=== PATIENT | male | born 1930 | race Caucasian/White ===

== ENCOUNTER 2017-03-29 11:10 | Emergency (ER) | payer MEDICARE, OTHER ==
--- NOTE | 2017-03-29 11:32 | EDM.PDOC ---
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 presents to the emergency department today with above complaint of urinary retention states been going on for last 12 hours, last time he had this difficulty with several years ago denies any fevers nausea vomiting shortness breath or chest pain Bladder Pain Score (Numeric/FACES): 7 - Related Data Allergies Allergy/AdvReac Type Severity Reaction Status Date / Time gabapentin AdvReac Stomach Verified 03/29/17 11:38 Upset Home Meds: Home Meds Chlorthalidone 25 mg PO DAILY 01/29/15 [History] Finasteride [Proscar] 5 mg PO DAILY 01/29/15 [History] Lisinopril [Zestril] 10 mg PO DAILY 01/29/15 [History] Omeprazole [Prilosec] 20 mg PO BID 01/29/15 [History] Simvastatin [Zocor] 40 mg PO BEDTIME 01/29/15 [History] PARoxetine HCl [Paroxetine HCl] 10 mg PO DAILY 11/06/15 [History] Aspirin [Adult Low Dose Aspirin EC] 81 mg PO DAILY 08/29/16 [History] Metoprolol Tartrate 12.5 mg PO BID 08/29/16 [History] Terazosin [Hytrin] 2 mg PO BEDTIME 08/29/16 [History] tiZANidine HCl [Zanaflex] 4 mg PO Q8HR PRN 08/29/16 [History] Polyethylene Glycol 3350 [Miralax] 17 gm PO DAILY 08/31/16 [History] Furosemide [Lasix] 20 mg PO DAILY #30 tab 09/28/16 [Rx] Potassium Chloride 20 meq PO BID #60 tablet.er 09/28/16 [Rx] Past Medical History HEENT History: Reports: Hard of Hearing, Impaired Vision Cardiovascular History: Reports: Cardiomyopathy, Heart Murmur, High Cholesterol , Hypertension Respiratory History: Reports: SOB Gastrointestinal History: Reports: Chronic Constipation, GERD, Irritable Bowel Syndrome Genitourinary History: Reports: BPH, Chronic Renal Insuffiency Other Genitourinary History: stage 3 Musculoskeletal History: Reports: Back Pain, Chronic, Fracture, Other (See Below ) Other Musculoskeletal History: 3 vertabrae's crushed together. 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 rib fx Neurological History: Reports: Other (See Below) Other Neuro History: neuopathy(HCC) Psychiatric History: Reports: Depression, Other (See Below) Other Psychiatric History: sleep distrbance Endocrine/Metabolic History: Reports: Other (See Below) Other Endocrine/Metabolic History: subclinical [id number] - Infectious Disease History Infectious Disease History: Reports: Chicken Pox, Measles, Mumps - Past Surgical History GI Surgical History: Reports: Cholecystectomy, Colonoscopy, Hernia Repair/Other , Polypectomy Musculoskeletal Surgical History: Reports: Arthroscopic Knee Social & Family History - Family History Cardiac: Reports: Other (See Below) Other Cardiac Family History: father of heart attack Endocrine/Metabolic: Reports: Diabetes, type II Hematologic: Reports: None Oncologic: Reports: Other (See Below) Other Oncologic Family History: sister had cancer unsure of what kind - Tobacco Use Smoking Status *Q: Never Smoker Second Hand Smoke Exposure: No - Caffeine Use Caffeine Use: Reports: None Caffeine Use Comment: one half cup tid - Alcohol Use Days Per Week of Alcohol Use: 2 Number of Drinks Per Day: 2 Total Drinks Per Week: 4 - Recreational Drug Use Recreational Drug Use: No ED ROS GENERAL - Review of Systems Review Of Systems: See Below Constitutional: Denies: Fever, Chills HEENT: Reports: No Symptoms Respiratory: Reports: No Symptoms Cardiovascular: Reports: No Symptoms GI/Abdominal: Reports: No Symptoms : Reports: Urinary Retention Musculoskeletal: Reports: No Symptoms Skin: Reports: No Symptoms ED EXAM, RENAL/ - Physical Exam Exam: See Below Exam Limited By: No Limitations General Appearance: Alert, WD/WN, No Apparent Distress GI/Abdominal: Soft, Tender (Suprapubic tenderness) Course - Vital Signs Last Recorded V/S: Last Vital Signs Temp 96.2 F 03/29/17 11:37 Pulse 66 03/29/17 11:37 Resp 20 03/29/17 11:37 BP 193/105 H 03/29/17 11:37 Pulse Ox 97 03/29/17 11:37 - Orders/Labs/Meds Orders: Active Orders 24 hr Category Date Time Status Kimball Catheter Insertion [Insert Urinary Catheter] [OM. Care 03/29/17 11:30 Ordered PC] Q24H Urinary Catheter Assessment [RC] ASDIRECTED Care 03/29/17 11:27 Active Departure - Departure Time of Disposition: 12:08 Disposition: Home, Self-Care 01 Condition: Good Clinical Impression: Urinary retention - Discharge Information Referrals: Wendy Montenegro NP [Primary Care Provider] - Forms: ED Department Discharge Additional Instructions: Keep the leg bag in place until reevaluated by your primary care provider in the next 2-3 days call or return to the emergency department worsening of symptoms - My Orders Last 24 Hours: My Active Orders 03/29/17 11:27 Urinary Catheter Assessment [RC] ASDIRECTED 03/29/17 11:30 Kimball Catheter Insertion [Insert Urinary Catheter] [OM.PC] Q24H - Assessment/Plan Last 24 Hours: My Active Orders 03/29/17 11:27 Urinary Catheter Assessment [RC] ASDIRECTED 03/29/17 11:30 Kimball Catheter Insertion [Insert Urinary Catheter] [OM.PC] Q24H Plan: Assessment Acuity = acute Site and laterality = urinary retention complicated patient with known history of cardiomyopathy and benign prostatic hyperplasia Etiology = probably secondary to BPH Manifestations = abdominal pain now resolved Location of injury = home Lab values = none Plan Leg bag was placed had follow-up with primary care in the next couple days for reevaluation Patient was in agreement with the plan all questions were answered, they were instructed to return to the emergency department or call for worsening symptoms. This note was dictated using [employer] voice recognition software please call with any questions.
[2017-03-29 12:17] VITALS: BP 112/58
== END 2017-03-29 12:40 | disposition home or self-care (01) ==
LOC: JP.ED 11:10
DX: I12.9 Hypertensive chronic kidney disease with stage 1 through stage 4 chronic kidney disease, or unspecified chronic kidney disease (principal); N18.3 Chronic kidney disease, stage 3 (moderate); R33.9 Retention of urine, unspecified; E78.00 Pure hypercholesterolemia, unspecified; Z79.82 Long term (current) use of aspirin; Z79.899 Other long term (current) drug therapy; Z88.8 Allergy status to other drugs, medicaments and biological substances
CPT/HCPCS: 51702; 99282; 99283-25

== ENCOUNTER 2017-05-04 06:21 | Observation (INO) | payer MEDICARE, OTHER ==
[2017-05-04] MEDS ORDERED: Dextrose 5%-Lactated Ringers 1,000 ML IV SCH (07:00)
[2017-05-04] MEDS ORDERED: Bupivacaine 0.5%/EPINEPHrine 1:200,000 50 ML MDV ONE (07:01)
[2017-05-04] MEDS ORDERED: Lidocaine 1% 50 ML MDV ONE (07:01)
[2017-05-04] MEDS ORDERED: ceFAZolin 2 GM in Premix Bag 1 BAG IV ONE (07:30)
[2017-05-04] MEDS ORDERED: fentaNYL 100 MCG/2 ML SDV ONE (07:32)
[2017-05-04] MEDS ORDERED: Propofol 200 MG/20 ML SDV ONE ×2 (07:32→07:58)
[2017-05-04] MEDS: ceFAZolin 2 GM in Sodium Chloride 0.9% 50 ML IV ONE ×2 (07:48→19:43)
--- NOTE | 2017-05-04 10:54 | PCM.CONS ---
H&P History of Present Illness - General Date of Service: 05/04/17 Source of Information: Patient, Family, Provider History Limitations: Reports: No Limitations - Related Data Allergies/Adverse Reactions: Allergies Allergy/AdvReac Type Severity Reaction Status Date / Time gabapentin AdvReac Stomach Verified 03/29/17 11:38 Upset Home Medications: Home Meds Finasteride [Proscar] 5 mg PO DAILY 01/29/15 [History] Lisinopril [Zestril] 5 mg PO DAILY 01/29/15 [History] Omeprazole [Prilosec] 20 mg PO BID 01/29/15 [History] Simvastatin [Zocor] 40 mg PO BEDTIME 01/29/15 [History] PARoxetine HCl [Paroxetine HCl] 10 mg PO DAILY 11/06/15 [History] Aspirin [Adult Low Dose Aspirin EC] 81 mg PO DAILY 08/29/16 [History] Metoprolol Tartrate 12.5 mg PO BID 08/29/16 [History] Terazosin [Hytrin] 5 mg PO BEDTIME 08/29/16 [History] Polyethylene Glycol 3350 [Miralax] 17 gm PO DAILY 08/31/16 [History] Acetaminophen [Tylenol Arthritis] 2 tab PO Q8HR PRN 05/02/17 [History] Albuterol [Ventolin HFA] 1 - 2 puff IH Q4HR PRN 05/02/17 [History] Ferrous Sulfate 325 mg PO DAILY 05/02/17 [History] Furosemide [Lasix] 40 mg PO DAILY 05/02/17 [History] Past Medical History HEENT History: Reports: Hard of Hearing, Impaired Vision Other HEENT History: wears glasses Cardiovascular History: Reports: Cardiomyopathy, Heart Murmur, High Cholesterol , Hypertension Respiratory History: Reports: SOB Gastrointestinal History: Reports: Chronic Constipation, Colon Polyp, GERD, Irritable Bowel Syndrome Genitourinary History: Reports: BPH, Chronic Renal Insuffiency Other Genitourinary History: stage 3 Musculoskeletal History: Reports: Back Pain, Chronic, Fracture, Other (See Below ) Other Musculoskeletal History: 3 vertabrae's crushed together. 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 rib fx Neurological History: Reports: Neuropathy, Peripheral, Other (See Below) Other Neuro History: neuopathy(HCC) Psychiatric History: Reports: Depression, Other (See Below) Other Psychiatric History: sleep distrbance Endocrine/Metabolic History: Reports: Other (See Below) Other Endocrine/Metabolic History: subclinical [id number]/2012 - Infectious Disease History Infectious Disease History: Reports: Chicken Pox, Mumps - Past Surgical History HEENT Surgical History: Reports: None Cardiovascular Surgical History: Reports: None Respiratory Surgical History: Reports: None GI Surgical History: Reports: Cholecystectomy, Colonoscopy, Hernia Repair/Other , Polypectomy Male Surgical History: Reports: None Endocrine Surgical History: Reports: None Neurological Surgical History: Reports: Lumbar Spine Musculoskeletal Surgical History: Reports: Arthroscopic Knee, Carpal Tunnel, Other (See Below) Other Musculoskeletal Surgeries/Procedures:: hip surgery Dermatological Surgical History: Reports: None Social & Family History - Family History Cardiac: Reports: [place], Other (See Below) Other Cardiac Family History: father of heart attack Endocrine/Metabolic: Reports: Diabetes, type II Hematologic: Reports: None Oncologic: Reports: Other (See Below) Other Oncologic Family History: sister had cancer unsure of what kind - Tobacco Use Smoking Status *Q: Never Smoker Second Hand Smoke Exposure: No - Caffeine Use Caffeine Use: Reports: Coffee Caffeine Use Comment: one half cup tid - Alcohol Use Days Per Week of Alcohol Use: 2 Number of Drinks Per Day: 1 Total Drinks Per Week: 2 - Recreational Drug Use Recreational Drug Use: No H&P Review of Systems - Review of Systems: Review Of Systems: See Below Free Text/Narrative: A complete 12 point review of systems was obtained. Pertinent positives and negatives are noted in the history of present illness. All other systems were reviewed and were negative except as noted. Exam - Exam Exam: See Below - Vital Signs Vital Signs: Last Vital Signs Temp 36.0 C 05/04/17 08:55 Pulse 46 L 05/04/17 09:25 Resp 16 05/04/17 09:25 BP 131/68 05/04/17 09:25 Pulse Ox 96 05/04/17 09:25 Weight: 77.836 kg - Exam Quality Assessment: No: Supplemental Oxygen General: Alert, Oriented, Cooperative. No: Mild Distress HEENT: Conjunctiva Clear, Mucosa Moist & [place]. No: Scleral Icterus Neck: Supple, Trachea Midline Lungs: Normal Respiratory Effort, Rales (dry crackles at both bases). No: Wheezing Cardiovascular: Regular Rhythm, Bradycardia, Systolic Murmur GI/Abdominal Exam: Normal Bowel Sounds, Soft, No Distention Back Exam: Normal Inspection, Full Range of Motion Extremities: Normal Inspection, No Pedal Edema. No: Increased Warmth Peripheral Pulses: 1+: Dorsalis Pedis (L), Dorsalis Pedis (R) Skin: Warm, Dry Neuro Extensive - Mental Status: Alert, Oriented x3, Nl Response to Commands Neuro Extensive - Motor, Sensory, Reflexes: CN II-XII Intact. No: Dysarthria, Abnormal Motor, Tremor - Patient Data Imaging Impressions Last 24 hrs: EKG - images personally reviewed - HR upper 50's, likely afib with no obvious p waves seen. Anterior Q waves. Normal axis Consult PN Assessment/Plan POD#: 0 Procedures: Procedures AIRWAY INHALATION TREATMENT (09/27/16) ASSAY OF NATRIURETIC PEPTIDE (09/27/16) ASSAY OF TROPONIN QUANT (08/29/16) CARDIOVASCULAR STRESS TEST (09/04/16) CHEST X-RAY 1 VIEW FRONTAL (08/29/16) CHEST X-RAY 2VW FRONTAL&LATL (09/27/16) COMPLETE CBC W/AUTO DIFF WBC (09/27/16) COMPREHEN METABOLIC PANEL (09/27/16) CREATINE MB FRACTION (08/22/16) CT ANGIOGRAPHY CHEST (09/27/16) CT MAXILLOFACIAL W/O DYE (08/05/14) ELECTROCARDIOGRAM REPORT (09/04/16) ELECTROCARDIOGRAM TRACING (09/27/16) EMERGENCY DEPT VISIT (03/29/17) EMERGENCY DEPT VISIT (09/27/16) EMERGENCY DEPT VISIT (08/29/16) EMERGENCY DEPT VISIT (11/06/15) EXTREMITY STUDY (12/16/15) HT MUSCLE IMAGE SPECT MULT (09/04/16) HYDRATE IV INFUSION ADD-ON (09/27/16) INSERT TEMP BLADDER CATH (03/29/17) METABOLIC PANEL TOTAL CA (09/27/16) MRI CHEST SPINE W/O DYE (11/10/16) MRI JNT OF LWR EXTRE W/O DYE (11/09/15) MRI LUMBAR SPINE W/O DYE (01/28/16) PRP I/GARDENIA INIT REDUC >5 YR (02/01/15) ROUTINE VENIPUNCTURE (09/27/16) THER/PROPH/DIAG INJ IV PUSH (09/27/16) THER/PROPH/DIAG INJ SC/IM (09/27/16) THROMBOPLASTIN TIME PARTIAL (02/11/16) TTE W/DOPPLER COMPLETE (09/04/16) TX/PRO/DX INJ SAME DRUG MANAGER CARD (09/27/16) UPR/L XTREMITY ART 2 LEVELS (12/28/15) URINALYSIS AUTO W/SCOPE (08/29/16) US EXAM ABDO BACK WALL COMP (11/07/16) X-RAY EXAM OF ABDOMEN (08/29/16) (1) Atrial fibrillation SNOMED Code(s): 21934898 Code(s): I48.91 - UNSPECIFIED ATRIAL FIBRILLATION Current Visit: Yes Qualifiers: Atrial fibrillation type: paroxysmal Qualified Code(s): I48.0 - Paroxysmal atrial fibrillation (2) 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
[2017-05-04] MEDS ORDERED: Acetaminophen/HYDROcodone 325-5 MG Tab PO PRN (10:57)
[2017-05-04] MEDS ORDERED: Acetaminophen 325 MG Tab PO PRN (14:49)
[2017-05-04] MEDS ORDERED: Ondansetron 4 MG Tab.DIS PO PRN (14:49)
[2017-05-04] MEDS ORDERED: Sodium Chloride 0.9% 10 ML Syringe FLUSH PRN (14:49)
--- NOTE | 2017-05-04 14:55 | PCM.HP ---
H&P History of Present Illness - General Date of Service: 05/04/17 Admit Problem/Dx: Admission Diagnosis/Problem Admission Diagnosis/Problem Atrial fibrillation Source of Information: Patient, Family, Provider History Limitations: Reports: No Limitations - History of Present Illness Initial Comments - Free Text/Narative: Héctor was admitted with weakness and new onset atrial fibrillation that were noticed after an elective hernia repair today. He reports that he has had difficulty with shortness of breath and dyspnea on exertion for approximately 6 months. Symptoms have been stable over a been a little bit worse the past few days. He has not had any difficulty with chest pain, fevers and has not had much in the way of a cough. He short of breath with minimal activity and can climb only a half a flight of stairs before stopping to rest. He does not report orthopnea or lower extremity edema. Recent echocardiogram showed normal left ventricular function but some diastolic dysfunction and pulmonary hypertension. Today after his hernia repair he was noted to have an irregular rhythm and EKG suggested atrial fibrillation with a controlled rate. The plan was for discharge to home with outpatient follow-up but unfortunately he is too weak to go home at this time. Left Groin Pain Score (Numeric/FACES): 3 - Related Data Allergies/Adverse Reactions: Allergies Allergy/AdvReac Type Severity Reaction Status Date / Time gabapentin AdvReac Stomach Verified 03/29/17 11:38 Upset Home Medications: Home Meds Finasteride [Proscar] 5 mg PO DAILY 01/29/15 [History] Lisinopril [Zestril] 5 mg PO DAILY 01/29/15 [History] Omeprazole [Prilosec] 20 mg PO BID 01/29/15 [History] Simvastatin [Zocor] 40 mg PO BEDTIME 01/29/15 [History] PARoxetine HCl [Paroxetine HCl] 10 mg PO DAILY 11/06/15 [History] Aspirin [Adult Low Dose Aspirin EC] 81 mg PO DAILY 08/29/16 [History] Metoprolol Tartrate 12.5 mg PO BID 08/29/16 [History] Terazosin [Hytrin] 5 mg PO BEDTIME 08/29/16 [History] Polyethylene Glycol 3350 [Miralax] 17 gm PO DAILY 08/31/16 [History] Acetaminophen [Tylenol Arthritis] 2 tab PO Q8HR PRN 05/02/17 [History] Albuterol [Ventolin HFA] 1 - 2 puff IH Q4HR PRN 05/02/17 [History] Ferrous Sulfate 325 mg PO DAILY 05/02/17 [History] Furosemide [Lasix] 40 mg PO DAILY 05/02/17 [History] Fluticasone/Salmeterol [Advair HFA 115-21] 2 puff INH BID 05/04/17 [History] Past Medical History HEENT History: Reports: Hard of Hearing, Impaired Vision Other HEENT History: wears glasses Cardiovascular History: Reports: Cardiomyopathy, Heart Murmur, High Cholesterol , Hypertension Respiratory History: Reports: SOB Gastrointestinal History: Reports: Chronic Constipation, Colon Polyp, GERD, Irritable Bowel Syndrome Genitourinary History: Reports: BPH, Chronic Renal Insuffiency Other Genitourinary History: stage 3 Musculoskeletal History: Reports: Back Pain, Chronic, Fracture, Other (See Below ) Other Musculoskeletal History: 3 vertabrae's crushed together. 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 rib fx Neurological History: Reports: Neuropathy, Peripheral, Other (See Below) Other Neuro History: neuopathy(HCC) Psychiatric History: Reports: Depression, Other (See Below) Other Psychiatric History: sleep distrbance Endocrine/Metabolic History: Reports: Other (See Below) Other Endocrine/Metabolic History: subclinical [id number] - Infectious Disease History Infectious Disease History: Reports: Chicken Pox, Mumps - Past Surgical History HEENT Surgical History: Reports: None Cardiovascular Surgical History: Reports: None Respiratory Surgical History: Reports: None GI Surgical History: Reports: Cholecystectomy, Colonoscopy, Hernia Repair/Other , Polypectomy Male Surgical History: Reports: None Endocrine Surgical History: Reports: None Neurological Surgical History: Reports: Lumbar Spine Musculoskeletal Surgical History: Reports: Arthroscopic Knee, Carpal Tunnel, Other (See Below) Other Musculoskeletal Surgeries/Procedures:: hip surgery Dermatological Surgical History: Reports: None Social & Family History - Family History Cardiac: Reports: [place], Other (See Below) Other Cardiac Family History: father of heart attack Endocrine/Metabolic: Reports: Diabetes, type II Hematologic: Reports: None Oncologic: Reports: Other (See Below) Other Oncologic Family History: sister had cancer unsure of what kind - Tobacco Use Smoking Status *Q: Never Smoker Second Hand Smoke Exposure: No - Caffeine Use Caffeine Use: Reports: Coffee Caffeine Use Comment: one half cup tid - Alcohol Use Days Per Week of Alcohol Use: 2 Number of Drinks Per Day: 1 Total Drinks Per Week: 2 - Recreational Drug Use Recreational Drug Use: No H&P Review of Systems - Review of Systems: Review Of Systems: See Below Free Text/Narrative: A complete 12 point review of systems was obtained. Pertinent positives and negatives are noted in the history of present illness. All other systems were reviewed and were negative except as noted. Exam - Exam Exam: See Below - Vital Signs Vital Signs: Last Vital Signs Temp 36.0 C 05/04/17 08:55 Pulse 56 L 05/04/17 14:35 Resp 16 05/04/17 14:35 BP 161/84 H 05/04/17 14:35 Pulse Ox 99 05/04/17 14:35 Weight: 77.836 kg - Exam Quality Assessment: Supplemental Oxygen General: Alert, Oriented, Cooperative, Mild Distress HEENT: Conjunctiva Clear, Mucosa Moist & [place]. No: Scleral Icterus Neck: Supple, Trachea Midline Lungs: Rales (both bases). No: Normal Respiratory Effort (mild increased work of breathing) Cardiovascular: Irregular Rhythm, Bradycardia, Systolic Murmur GI/Abdominal Exam: Normal Bowel Sounds, Soft, Non-Tender, No Distention Back Exam: Normal Inspection, Full Range of Motion Extremities: Normal Inspection, No Pedal Edema. No: Increased Warmth Peripheral Pulses: 1+: Dorsalis Pedis (L), Dorsalis Pedis (R) Skin: Warm, Dry Neuro Extensive - Mental Status: Alert, Oriented x3, Nl Response to Commands Neuro Extensive - Motor, Sensory, Reflexes: CN II-XII Intact. No: Dysarthria, Abnormal Motor, Tremor Psychiatric: Alert, Normal Affect - Patient Data Result Diagrams: 05/04/17 15:04 05/04/17 15:04 EKG INTERPRETATION EKG Date: 05/04/17 Rhythm: A-Fib Rate (Beats/Min): 55 [place]: Normal P-Wave: Variable QRS: Normal ST-T: Normal QT: Normal Comparison: Change From Previous EKG *Q Meaningful Use (ADM) - VTE *Q VTE Criteria *Q: - VTE Risk Assess *Q Each Risk Factor Represents 1 Point: Minor Surgery Planned, Congestive Heart Failure, Less than 1 Month, Abnormal Pulmonary Function (COPD) Total Score 1 Point Risk Factors: 3 Each Risk Factor Represents 2 Points: None Total Score 2 Point Risk Factors: 0 Each Risk Factor Represents 3 Points: Age 75 Years or Greater Total Score 3 Point Risk Factors: 3 Each Risk Factor Represents 5 Points: None Total Score 5 Point Risk Factors: 0 Venous Thromboembolism Risk Factor Score *Q: 6 - Stroke *Q Stroke Criteria *Q: - AMI *Q AMI Criteria *Q: - Problem List (1) Atrial fibrillation SNOMED Code(s): 00613321 ICD Code: I48.91 - UNSPECIFIED ATRIAL FIBRILLATION Status: Acute Current Visit: Yes Qualifiers: Atrial fibrillation type: paroxysmal Qualified Code(s): I48.0 - Paroxysmal atrial fibrillation (2) Diastolic CHF with preserved left ventricular function, NYHA class 2 SNOMED Code(s): 818881095, 031233396, 388293923, 903743862 ICD Code: I50.30 - UNSPECIFIED DIASTOLIC (CONGESTIVE) HEART FAILURE Status : Acute Current Visit: Yes (3) CKD (chronic kidney disease) stage 3, GFR 30-59 ml/min SNOMED Code(s): 400241203 ICD Code: N18.3 - CHRONIC KIDNEY DISEASE, STAGE 3 (MODERATE) Status: Chronic Current Visit: No Problem List Initiated/Reviewed/Updated: Yes Orders Last 24hrs: Active Orders 24 hr Category Date Time Status Patient Status [ADT] Routine ADT 05/04/17 14:49 Ordered Cardiac Monitoring [RC] CONTINUOUS Care 05/04/17 14:50 Ordered Notify Provider Vital Signs [RC] ASDIRECTED Care 05/04/17 14:50 Ordered Oxygen Therapy [RC] PRN Care 05/04/17 14:49 Ordered Up With Assistance [RC] ASDIRECTED Care 05/04/17 14:49 Ordered VTE/DVT Education [RC] Per Unit Routine Care 05/04/17 14:49 Ordered Vital Signs [RC] Q4H Care 05/04/17 14:49 Ordered PT Evaluation and Treatment [CONS] Routine Cons 05/05/17 07:00 Ordered Regular Diet [DIET] Diet 05/04/17 Dinner Ordered CXR [Chest 2V] [CR] Routine Exams 05/04/17 14:52 Ordered BASIC METABOLIC PANEL,BMP [CHEM] Routine Lab 05/04/17 14:49 Ordered CBC WITH AUTO DIFF [HEME] Routine Lab 05/04/17 14:49 Ordered MAGNESIUM [CHEM] Routine Lab 05/04/17 14:49 Ordered TROPONIN I [CHEM] Routine Lab 05/04/17 14:49 Ordered TSH ULTRASENSITIVE [CHEM] Routine Lab 05/04/17 14:52 Ordered Acetaminophen [Tylenol] Med 05/04/17 14:49 Ordered 650 mg PO Q4H PRN Acetaminophen/HYDROcodone [[place] 325-5 MG] Med 05/04/17 10:57 Active 1 - 2 tab PO Q4H PRN Acetaminophen/HYDROcodone [[place] 325-5 MG] Med 05/04/17 14:49 Ordered 1 tab PO Q4H PRN Aspirin [Adult Low Dose Aspirin EC] Med 05/05/17 09:00 Ordered 81 mg PO DAILY Dextrose 5%-Lactated Ringers 1,000 ml Med 05/04/17 07:00 Active IV ASDIRECTED Finasteride [Proscar] Med 05/05/17 09:00 Ordered 5 mg PO DAILY Lisinopril [Zestril] Med 05/05/17 09:00 Ordered 5 mg PO DAILY Metoprolol Tartrate [Metoprolol Tartrate] Med 05/04/17 21:00 Ordered 12.5 mg PO BID Omeprazole [Prilosec] Med 05/04/17 21:00 Ordered 20 mg PO BID Ondansetron [Zofran ODT] Med 05/04/17 14:49 Ordered 4 mg PO Q6H PRN PARoxetine HCl [Paroxetine HCl] Med 05/05/17 09:00 Ordered 10 mg PO DAILY Polyethylene Glycol 3350 [Miralax] Med 05/05/17 09:00 Ordered 17 gm PO DAILY Simvastatin [Zocor] Med 05/04/17 21:00 Ordered 40 mg PO BEDTIME Sodium Chloride 0.9% @ 100 MLS/HR(1000ml) Med 05/04/17 15:00 Ordered Sodium Chloride 0.9% [Normal Saline] 1,000 ml IV ASDIRECTED Sodium Chloride 0.9% [Saline Flush] Med 05/04/17 14:49 Ordered 10 ml FLUSH ASDIRECTED PRN Terazosin [Hytrin] Med 05/04/17 21:00 Ordered 5 mg PO BEDTIME SCD [Sequential Compression Device] [OM.PC] Routine Oth 05/04/17 07:00 Ordered Saline Lock Insert [OM.PC] Routine Oth 05/04/17 14:49 Ordered Sequential Compression Device [OM.PC] Per Unit Routine Oth 05/04/17 14:50 Ordered Resuscitation Status Routine Resus Stat 05/04/17 14:49 Ordered EKG 12 Lead [EK] Routine Ther 05/04/17 08:33 Ordered EKG 12 Lead [EK] Routine Ther 05/04/17 10:25 Ordered Medication Orders Acetaminophen (Tylenol) 650 mg PO Q4H PRN PRN Reason: Pain (Mild 1-3)/fever Hydrocodone Bitart/Acetaminophen ([place] 325-5 Mg) 1 - 2 tab PO Q4H PRN PRN Reason: Pain Last Admin: 05/04/17 11:09 Dose: 1 tab Hydrocodone Bitart/Acetaminophen ([place] 325-5 Mg) 1 tab PO Q4H PRN PRN Reason: Pain (moderate 4-6) Dextrose/Lactated Ringer's (Dextrose 5%-Lactated Ringers) 1,000 mls @ 100 mls/ hr IV ASDIRECTED TERE Last Admin: 05/04/17 07:00 Dose: 100 mls/hr Sodium Chloride (Normal Saline) 1,000 mls @ 100 mls/hr IV ASDIRECTED TERE Non-Formulary Medication (Aspirin [Adult Low Dose Aspirin Ec]) 81 mg PO DAILY TERE Non-Formulary Medication (Finasteride [Proscar]) 5 mg PO DAILY TERE Non-Formulary Medication (Lisinopril [Zestril]) 5 mg PO DAILY TERE Non-Formulary Medication (Metoprolol Tartrate [Metoprolol Tartrate]) 12.5 mg PO BID TERE Non-Formulary Medication (Omeprazole [Prilosec]) 20 mg PO BID TERE Non-Formulary Medication (Paroxetine Hcl [Paroxetine Hcl]) 10 mg PO DAILY TERE Non-Formulary Medication (Polyethylene Glycol 3350 [Miralax]) 17 gm PO DAILY TERE Non-Formulary Medication (Simvastatin [Zocor]) 40 mg PO BEDTIME TERE Non-Formulary Medication (Terazosin [Hytrin]) 5 mg PO BEDTIME TERE Ondansetron HCl (Zofran Odt) 4 mg PO Q6H PRN PRN Reason: Nausea able to take PO Sodium Chloride (Saline Flush) 10 ml FLUSH ASDIRECTED PRN PRN Reason: Keep Vein Open Assessment/Plan Comment:: Assessment and plan - new-onset atrial fibrillation - duration unclear at this time and initially he was thought to be minimally symptomatic. Short episode of tachycardia while trying to ambulate this afternoon. he has normal left ventricular function. He has been short of breath with activity for 6 months, unclear if this is related to atrial fibrillation or additional cardiopulmonary disease. His CHADSS-VASC score is elevated suggesting the an offensive warfarin/anticoagulation would outweigh the risks. I'm planning to hold off on initiation since he just had hernia surgery. currently he is well rate controlled. -Telemetry monitoring -Continue beta jay jay -gentle IV fluids -CBC, BMP and chest x-ray -I believe he would benefit from anticoagulation but initiation likely will be deferred to outpatient setting with recent surgery -He may need outpatient ischemic workup generalized weakness - may be related to surgery and pain medications. No strong evidence for infection at this time. -Management as above -Physical therapy in the morning diastolic congestive heart failure - appears well compensated at this time and he is on appropriate medical management. -Continue home medications Stage III chronic kidney disease - he is receiving hydration. Planning to check labs to compare admission to baseline levels. Maintenance issues - - DVT prophylaxis - mechanical - GI prophylaxis - PPI - Nutrition - heart healthy - Kimball catheter - not indicated CODE STATUS - he is not interested in resuscitation but is interested in intubation for select cases Admission justification - patient will be referred observation for cardiac monitoring overnight and strengthening in the morning. Disposition - anticipate discharge to home tomorrow Primary care physician - Wendy Montenegro nurse practitioner Omer Benitez M.D.
[2017-05-04] MEDS ORDERED: Sodium Chloride 0.9% 1,000 ML IV SCH (15:00)
--- NOTE | 2017-05-04 15:01 | OR ---
DATE OF PROCEDURE: 05/04/2017 PREOPERATIVE DIAGNOSIS: Reducible left inguinal hernia. POSTOPERATIVE DIAGNOSIS: Reducible indirect left inguinal hernia. PROCEDURE: Repair of reducible indirect left inguinal hernia with an extra- large PerFix mesh plug and patch. ANESTHESIA: IV anesthesia with monitored anesthesia care. INDICATIONS: This 86-year-old white male has a reducible left inguinal hernia. He denies predisposing factors for hernia formation. No signs or symptoms of incarceration or obstruction. He does have a history, a few years ago, of undergoing a right inguinal hernia repair with a mesh plug and patch. I counseled him for repair of his left inguinal hernia with a mesh plug and patch including risks and alternatives, and he gave his informed consent to proceed. DESCRIPTION OF PROCEDURE: After adequate IV anesthesia was obtained, the patient's lower abdomen, groin, and genitalia were prepped and draped in the usual sterile fashion. The leg compression stockings were in place and used during the entire procedure. Time-out was held. Lidocaine 1% with epinephrine in a 50:50 mix with 0.5% Marcaine was infiltrated about the left groin. A left groin incision was made 2 cm superior and medial to the inguinal ligament. This was carried deep using Bovie cautery to the external oblique. The external oblique was opened parallel to the course of its fibers from the internal to the external ring. The spermatic cord was mobilized and a Quinn drain was placed about it. The floor appeared to be weak, but intact. The cremasteric fibers were longitudinally to reveal an indirect hernia sac. This was dissected free back to the peritoneal reflection and reduced back into the abdomen. The defect was fairly large. We obtained an extra-large PerFix mesh plug manufactured by [employer]. The plug was placed down through the defect underneath the fascia and anchored to the underside of the fascia with horizontal mattress stitches of 2-0 Vicryl. The onlay patch was obtained, cut to appropriate length, and placed over the inguinal floor. It was anchored to itself around the spermatic cord with a horizontal mattress stitch of 2-0 Vicryl. The ilioinguinal nerve was divided. The spermatic cord was returned to the inguinal canal. The external oblique was closed over it all with a running stitch of 3-0 Vicryl. Interrupted 3-0 Vicryl stitches were placed to approximate Melissa's fascia. 4-0 Vicryl, using a subcuticular stitch, was placed to approximate the skin. Dermabond was applied. The patient tolerated the procedure well and was brought to the recovery room in a good condition. Of interest, he was noted to be in atrial fibrillation. Tarun Matute MD /[id number]
[2017-05-04] MEDS ORDERED: LORazepam 0.5 MG Tab PO PRN (17:32)
[2017-05-04] MEDS: Acetaminophen/HYDROcodone 325-5 MG Tab PO PRN (17:58)
[2017-05-04] MEDS: OMEPRAZOLE 20 MG PO SCH (18:02)
[2017-05-04] MEDS ORDERED: Docusate Sodium 100 MG Cap PO PRN (20:17)
[2017-05-04] MEDS: Metoprolol Tartrate 25 MG Tab*POM PO SCH (20:57)
[2017-05-04] MEDS ORDERED: SIMVASTATIN 80 MG PO SCH (21:00)
[2017-05-04] MEDS: ADVAIR INH SCH (21:00)
[2017-05-04] MEDS ORDERED: Terazosin 5 MG Cap (PTOM) PO SCH (21:00)
[2017-05-05] MEDS: Acetaminophen/HYDROcodone 325-5 MG Tab PO PRN ×3 (02:48→11:25)
[2017-05-05] MEDS: OMEPRAZOLE 20 MG PO SCH (07:50)
[2017-05-05] MEDS: ADVAIR INH SCH (08:40)
[2017-05-05] MEDS ORDERED: FINASTERIDE 5 MG PO SCH (09:00)
[2017-05-05] MEDS ORDERED: PAROXETINE HCL 10 MG PO SCH (09:00)
[2017-05-05] MEDS ORDERED: Polyethylene Glycol 3350 Powder 17 GM Packet PO SCH (09:00)
[2017-05-05] MEDS ORDERED: ASPIRIN 81 MG PO SCH (09:00)
[2017-05-05] MEDS ORDERED: LISINOPRIL 5 MG PO SCH (09:00)
[2017-05-05] MEDS: Metoprolol Tartrate 25 MG Tab*POM PO SCH (09:35)
[2017-05-05 09:37] VITALS: BP 136/71
--- NOTE | 2017-05-05 10:07 | PCM.SURGPN ---
- General Info Date of Service: 05/05/17 Date of Surgery/Procedure: 05/04/17 POD#: 1 Post-Op Diagnosis: Left inguinal hernia, new onset a-fib with transient rapid ventricular response Functional Status: Reports: Pain Controlled, Tolerating Diet, Ambulating, Urinating, Incentive Spirometry - Review of Systems General: Reports: No Symptoms HEENT: Reports: No Symptoms Pulmonary: Reports: Shortness of Breath (Much improved. ) Cardiovascular: Reports: No Symptoms Gastrointestinal: Reports: No Symptoms Genitourinary: Reports: No Symptoms Musculoskeletal: Reports: No Symptoms Skin: Reports: No Symptoms Neurological: Reports: No Symptoms Psychiatric: Reports: No Symptoms - Patient Data Vitals - Most Recent: Last Vital Signs Temp 98.3 F 05/05/17 07:00 Pulse 69 05/05/17 09:35 Resp 20 05/05/17 07:00 BP 136/71 05/05/17 09:35 Pulse Ox 94 L 05/05/17 07:00 Weight - Most Recent: 171 lb 9.6 oz I&O - Last 24 Hours: Intake & Output 05/04/17 05/05/17 05/05/17 22:59 06:59 14:59 Intake Total 120 150 360 Balance 120 150 360 Lab Results Last 24 Hrs: Laboratory Results - last 24 hr 05/04/17 05/04/17 05/04/17 Range/Units 15:04 15:04 15:04 WBC 9.9 (4.5-11.0) K/uL RBC 3.72 L (4.30-5.90) M/uL Hgb 11.3 L (12.0-15.0) g/dL Hct 34.5 L (40.0-54.0) % MCV 93 (80-98) fL MCH 30 (27-31) pg MCHC 33 (32-36) % Plt Count 142 L (150-400) K/uL Neut % (Auto) 82 H (36-66) % Lymph % (Auto) 9 L (24-44) % [place] % (Auto) 8 H (2-6) % Eos % (Auto) 1 L (2-4) % Baso % (Auto) 0 (0-1) % Sodium 136 L (140-148) mmol/L Potassium 4.3 (3.6-5.2) mmol/L Chloride 102 (100-108) mmol/L Carbon Dioxide 29 (21-32) mmol/L Anion Gap 9.3 (5.0-14.0) mmol/L BUN 22 H (7-18) mg/dL Creatinine 1.3 (0.8-1.3) mg/dL Est Cr Clr Drug Dosing 41.54 mL/min Estimated GFR (MDRD) 52 L (>60) Glucose 143 H (74-106) mg/dL Calcium 8.3 L (8.5-10.1) mg/dL Magnesium 2.0 (1.8-2.4) mg/dL Troponin I 0.050 (0.000-0.056) ng/mL TSH, Ultra Sensitive 1.400 (0.358-3.740) uIU/mL Med Orders - Current: Current Medications Acetaminophen (Tylenol) 650 mg PO Q4H PRN PRN Reason: Pain (Mild 1-3)/fever Hydrocodone Bitart/Acetaminophen ([place] 325-5 Mg) 1 tab PO Q4H PRN PRN Reason: Pain (moderate 4-6) Last Admin: 05/05/17 06:49 Dose: 1 tab Docusate Sodium (Colace) 100 mg PO DAILY PRN PRN Reason: Constipation Last Admin: 05/04/17 21:01 Dose: 100 mg Finasteride (Proscar) 5 mg PO DAILY [facility] Last Admin: 05/05/17 09:33 Dose: 5 mg Lisinopril (Prinivil) 5 mg PO DAILY [facility] Last Admin: 05/05/17 09:35 Dose: 5 mg Lorazepam (Ativan) 0.25 mg PO Q4H PRN PRN Reason: Anxiety Last Admin: 05/04/17 18:01 Dose: 0.25 mg Metoprolol Tartrate (Lopressor) 12.5 mg PO BID [facility] Last Admin: 05/05/17 09:35 Dose: 12.5 mg (Aspirin [Adult Low Dose Aspirin Ec] 81 Mg)*Pom* 81 mg PO DAILY [facility] Last Admin: 05/05/17 09:35 Dose: 81 mg (Omeprazole [ Prilosec] 20 Mg)*[facility] Last Admin: 05/05/17 07:50 Dose: 20 mg (Paroxetine Hcl [ Paroxetine Hcl] 10 Mg)*Pom* 10 mg PO DAILY [facility] Last Admin: 05/05/17 09:34 Dose: 10 mg (Simvastatin [Zocor] (80 Mg)*Pom*) 40 mg PO BEDTIME [facility] Last Admin: 05/04/17 20:58 Dose: 40 mg Ondansetron HCl (Zofran Odt) 4 mg PO Q6H PRN PRN Reason: Nausea able to take PO Advair Hfa 115/21 ( (Ptom)) 0 each INH BIDRT [facility] Last Admin: 05/05/17 08:40 Dose: 2 each Polyethylene Glycol (Miralax) 17 gm PO DAILY [facility] Last Admin: 05/05/17 09:36 Dose: 17 gm Sodium Chloride (Saline Flush) 10 ml FLUSH ASDIRECTED PRN PRN Reason: Keep Vein Open Terazosin HCl (Hytrin) 5 mg PO BEDTIME [facility] Last Admin: 05/04/17 20:57 Dose: 5 mg Discontinued Medications Hydrocodone Bitart/Acetaminophen ([place] 325-5 Mg) 1 - 2 tab PO Q4H PRN PRN Reason: Pain Last Admin: 05/04/17 11:09 Dose: 1 tab Bupivacaine HCl/Epinephrine Bitart ([place]aine 0.5%/Epinephrine 1:200,000) Confirm Administered Dose 50 ml .ROUTE .STK-MED ONE Stop: 05/04/17 07:02 Last Admin: 05/04/17 07:55 Dose: 7 ml Fentanyl (Sublimaze) Confirm Administered Dose 100 mcg .ROUTE .STK-MED ONE Stop: 05/04/17 07:33 Dextrose/Lactated Ringer's (Dextrose 5%-Lactated Ringers) 1,000 mls @ 100 mls/ hr IV ASDIRECTED [facility] Last Admin: 05/04/17 07:00 Dose: 100 mls/hr Cefazolin Sodium 2 gm/ Sodium (Chloride) 50 mls @ 100 mls/hr IV ONETIME ONE Stop: 05/04/17 07:59 Last Admin: 05/04/17 19:43 Dose: Not Given Sodium Chloride (Normal Saline) 1,000 mls @ 100 mls/hr IV ASDIRECTED [facility] Last Admin: 05/04/17 15:57 Dose: 100 mls/hr Lidocaine HCl (Xylocaine 1%) Confirm Administered Dose 50 ml .ROUTE .STK-MED ONE Stop: 05/04/17 07:02 Last Admin: 05/04/17 07:55 Dose: 7 ml Propofol (Diprivan 20 Ml) Confirm Administered Dose 200 mg .ROUTE .STK-MED ONE Stop: 05/04/17 07:33 Propofol (Diprivan 20 Ml) Confirm Administered Dose 200 mg .ROUTE .STK-MED ONE Stop: 05/04/17 07:59 - Exam Wound/Incisions: Healing Well, No Drainage Quality Assessment: DVT Prophylaxis (Mechanical ) General: Alert, Oriented, Cooperative, No Acute Distress Lungs: Clear to Auscultation, Normal Respiratory Effort Cardiovascular: Irregular Rhythm, Bradycardia GI/Abdominal Exam: Normal Bowel Sounds, Soft, Non-Tender Extremities: Normal Inspection, No Pedal Edema Skin: Warm, Dry, Intact (Incision is bruised but appears well. ) Neurological: No New Focal Deficit Psy/Mental Status: Alert, Normal Affect, Normal Mood - Problem List & Annotations (1) Atrial fibrillation SNOMED Code(s): 18163154 Code(s): I48.91 - UNSPECIFIED ATRIAL FIBRILLATION Status: Acute Current Visit: Yes Qualifiers: Atrial fibrillation type: paroxysmal Qualified Code(s): I48.0 - Paroxysmal atrial fibrillation (2) S/P hernia surgery SNOMED Code(s): 58889804026199, 89657484269944 Code(s): Z98.890 - OTHER SPECIFIED POSTPROCEDURAL STATES; Z87.19 - PERSONAL HISTORY OF OTHER DISEASES OF THE DIGESTIVE SYSTEM Status: Acute Current Visit: Yes - Problem List Review Problem List Initiated/Reviewed/Updated: Yes - My Orders Last 24 Hours: Active Orders 24 hr Category Date Time Status Patient Status [ADT] Routine ADT 05/04/17 14:49 Active Cardiac Monitoring [RC] CONTINUOUS Care 05/04/17 14:50 Active Notify Provider Vital Signs [RC] ASDIRECTED Care 05/04/17 14:50 Active Oxygen Therapy [RC] PRN Care 05/04/17 14:49 Active Up With Assistance [RC] ASDIRECTED Care 05/04/17 14:49 Active VTE/DVT Education [RC] Per Unit Routine Care 05/04/17 14:49 Active Vital Signs [RC] Q4H Care 05/04/17 14:49 Active PT Evaluation and Treatment [CONS] Routine Cons 05/05/17 07:00 Active Regular Diet [DIET] Diet 05/04/17 Dinner Active CXR [Chest 2V] [CR] Routine Exams 05/04/17 14:52 Taken Acetaminophen [Tylenol] Med 05/04/17 14:49 Active 650 mg PO Q4H PRN Acetaminophen/HYDROcodone [[place] 325-5 MG] Med 05/04/17 14:49 Active 1 tab PO Q4H PRN Aspirin [Adult Low Dose Aspirin EC] Med 05/05/17 09:00 Active 81 mg PO DAILY Docusate Sodium [Colace] Med 05/04/17 20:17 Active 100 mg PO DAILY PRN Finasteride [Proscar] Med 05/05/17 09:00 Active 5 mg PO DAILY LORazepam [Ativan] Med 05/04/17 17:32 Active 0.25 mg PO Q4H PRN Lisinopril [Prinivil] Med 05/05/17 09:00 Active 5 mg PO DAILY Metoprolol Tartrate [Lopressor] Med 05/04/17 21:00 Active 12.5 mg PO BID Omeprazole [Prilosec] Med 05/04/17 16:30 Active 20 mg PO BIDAC Ondansetron [Zofran ODT] Med 05/04/17 14:49 Active 4 mg PO Q6H PRN PARoxetine HCl [Paroxetine HCl] Med 05/05/17 09:00 Active 10 mg PO DAILY Patient's Own Medication [Ptom] Med 05/04/17 21:00 Active 0 each INH BIDRT Polyethylene Glycol 3350 [MiraLAX] Med 05/05/17 09:00 Active 17 gm PO DAILY Simvastatin [Zocor] Med 05/04/17 21:00 Active 40 mg PO BEDTIME Sodium Chloride 0.9% [Saline Flush] Med 05/04/17 14:49 Active 10 ml FLUSH ASDIRECTED PRN Terazosin [Hytrin] Med 05/04/17 21:00 Active 5 mg PO BEDTIME Convert IV to Saline Lock [OM.PC] Routine Oth 05/04/17 17:32 Ordered Saline Lock Insert [OM.PC] Routine Oth 05/04/17 14:49 Ordered Sequential Compression Device [OM.PC] Per Unit Routine Oth 05/04/17 14:50 Ordered Resuscitation Status Routine Resus Stat 05/04/17 14:49 Ordered EKG 12 Lead [EK] Routine Ther 05/04/17 10:25 Ordered Medication Orders Acetaminophen (Tylenol) 650 mg PO Q4H PRN PRN Reason: Pain (Mild 1-3)/fever Hydrocodone Bitart/Acetaminophen ([place] 325-5 Mg) 1 tab PO Q4H PRN PRN Reason: Pain (moderate 4-6) Last Admin: 05/05/17 06:49 Dose: 1 tab Admin: 05/05/17 02:48 Dose: 1 tab Admin: 05/04/17 17:58 Dose: 1 tab Docusate Sodium (Colace) 100 mg PO DAILY PRN PRN Reason: Constipation Last Admin: 05/04/17 21:01 Dose: 100 mg Finasteride (Proscar) 5 mg PO DAILY [facility] Last Admin: 05/05/17 09:33 Dose: 5 mg Lisinopril (Prinivil) 5 mg PO DAILY [facility] Last Admin: 05/05/17 09:35 Dose: 5 mg Lorazepam (Ativan) 0.25 mg PO Q4H PRN PRN Reason: Anxiety Last Admin: 05/04/17 18:01 Dose: 0.25 mg Metoprolol Tartrate (Lopressor) 12.5 mg PO BID [facility] Last Admin: 05/05/17 09:35 Dose: 12.5 mg Admin: 05/04/17 20:57 Dose: 12.5 mg (Aspirin [Adult Low Dose Aspirin Ec] 81 Mg)*Pom* 81 mg PO DAILY [facility] Last Admin: 05/05/17 09:35 Dose: 81 mg (Omeprazole [ Prilosec] 20 Mg)*Pom * 20 mg PO BIDAC [facility] Last Admin: 05/05/17 07:50 Dose: 20 mg Admin: 05/04/17 18:02 Dose: 20 mg (Paroxetine Hcl [ Paroxetine Hcl] 10 Mg)*Pom* 10 mg PO DAILY [facility] Last Admin: 05/05/17 09:34 Dose: 10 mg (Simvastatin [Zocor] (80 Mg)*Pom*) 40 mg PO BEDTIME [facility] Last Admin: 05/04/17 20:58 Dose: 40 mg Ondansetron HCl (Zofran Odt) 4 mg PO Q6H PRN PRN Reason: Nausea able to take PO Advair Hfa 115/21 ( (Ptom)) 0 each INH BIDRT [facility] Last Admin: 05/05/17 08:40 Dose: 2 each Admin: 05/04/17 21:00 Dose: 2 each Polyethylene Glycol (Miralax) 17 gm PO DAILY [facility] Last Admin: 05/05/17 09:36 Dose: 17 gm Sodium Chloride (Saline Flush) 10 ml FLUSH ASDIRECTED PRN PRN Reason: Keep Vein Open Terazosin HCl (Hytrin) 5 mg PO BEDTIME [facility] Last Admin: 05/04/17 20:57 Dose: 5 mg - Assessment Assessment (Free Text/Narrative):: He appears well today. He feels better. Still some shortness of breath. Eating well. - Plan Plan (Free Text/Narrative):: If he goes home, I want to see him in about two weeks.
--- NOTE | 2017-05-05 11:41 | PCM.DCSUM1 ---
Discharge Summary - Hospital Course Brief History: 86-year-old male with history of diastolic congestive heart failure with admitted for observation after an episode of weakness and atrial fibrillation that occurred after a hernia repair. - Discharge Data Discharge Date: 05/05/17 Discharge Disposition: Home, Self-Care 01 Condition: Good - Discharge Diagnosis/Problem(s) (1) Atrial fibrillation SNOMED Code(s): 20179609 ICD Code: I48.91 - UNSPECIFIED ATRIAL FIBRILLATION Status: Acute Qualifiers: Atrial fibrillation type: paroxysmal Qualified Code(s): I48.0 - Paroxysmal atrial fibrillation (2) Diastolic CHF with preserved left ventricular function, NYHA class 2 SNOMED Code(s): 468920944, 961915085, 502429019, 211098029 ICD Code: I50.30 - UNSPECIFIED DIASTOLIC (CONGESTIVE) HEART FAILURE Status : Acute (3) CKD (chronic kidney disease) stage 3, GFR 30-59 ml/min SNOMED Code(s): 614951935 ICD Code: N18.3 - CHRONIC KIDNEY DISEASE, STAGE 3 (MODERATE) Status: Chronic - Patient Summary/Data Consults: Consultations 05/05/17 07:00 PT Evaluation and Treatment [CONS] Routine Please Evaluate and Treat. PT Reason for Consult: Strengthening This query below is only for informational purposes and is not editable. Admission Diagnosis/Problem: Atrial fibrillation Hospital Course: Héctor was admitted for observation after an episode of weakness. He had a left inguinal hernia repair on the morning of admission. Postoperatively he was noted to have an irregular heart rate. I evaluated him at that time and he was found to be in atrial fibrillation with a controlled rate. This was a new rhythm for him. At the time of the consultation he appeared to be asymptomatic with the rhythm and has had almost the entire workup already. We discussed potential options at that point and he elected to go home with outpatient follow -up. Unfortunately he was too weak to go home on his own so he was admitted for observation. He did have reportedly an episode of tachycardia that was very short-lived but did occur while he was trying to get up prior to going home. He was admitted to the hospital with telemetry monitoring and there were no abnormalities overnight other than his rate controlled atrial fibrillation. The morning after admission his strength has improved and he feels back to his usual self. His pain has been well-controlled using only oral medications. I do believe he is safe for outpatient management at this time. I believe that if he does remain in atrial fibrillation he probably would be a candidate for anticoagulation. The exact duration of his atrial fibrillation is unknown and this may be a paroxysmal type recurrence and hopefully will resolve after the inflammation from surgery resolves. I have elected not to start anticoagulation at the time of discharge because of his recent surgery. He will be following up in the near future with his primary care for further discussion. He has had an echocardiogram. He does not report any chest pain but he has had some dyspnea with exertion and ischemic workup could be considered as well. He'll be discharged home with no medication changes. His and daughter are in agreement with the plan. - Patient Instructions Diet: Heart Healthy Diet Activity: As Tolerated Driving: Do Not Drive (if taking pain pills) Showering/Bathing: May Shower Notify Provider of: Fever, Increased Pain, Nausea and/or Vomiting Other/Special Instructions: 1. You were in the hospital for observation after an episode of weakness as well as for cardiac monitoring after we noticed atrial fibrillation following your hernia surgery. Your strength seems to have improved overnight without any intervention. Your heart remains in atrial fibrillation but the rate is well controlled. I would recommend a follow-up appointment with Wendy Montenegro to see if you've remained in atrial fibrillation. If you do in fact remained in atrial fibrillation we may need to consider starting a blood thinner to help reduce your risk of stroke. 2. Continue your other home medications as previously prescribed. 3. Follow-up as scheduled next week. 4. Please seek medical attention if you develop fever greater than 101, have sudden onset of shortness of breath, chest pain, dizziness/ lightheadedness or severe fatigue. - Discharge Plan Home Medications: Home Meds Finasteride [Proscar] 5 mg PO DAILY 01/29/15 [History] Lisinopril [Zestril] 5 mg PO DAILY 01/29/15 [History] Omeprazole [Prilosec] 20 mg PO BID 01/29/15 [History] Simvastatin [Zocor] 40 mg PO BEDTIME 01/29/15 [History] PARoxetine HCl [Paroxetine HCl] 10 mg PO DAILY 11/06/15 [History] Aspirin [Adult Low Dose Aspirin EC] 81 mg PO DAILY 08/29/16 [History] Metoprolol Tartrate 12.5 mg PO BID 08/29/16 [History] Terazosin [Hytrin] 5 mg PO BEDTIME 08/29/16 [History] Polyethylene Glycol 3350 [Miralax] 17 gm PO DAILY 08/31/16 [History] Acetaminophen [Tylenol Arthritis] 2 tab PO Q8HR PRN 05/02/17 [History] Albuterol [Ventolin HFA] 1 - 2 puff IH Q4HR PRN 05/02/17 [History] Ferrous Sulfate 325 mg PO DAILY 05/02/17 [History] Furosemide [Lasix] 40 mg PO DAILY 05/02/17 [History] Fluticasone/Salmeterol [Advair HFA 115-21 MCG] 2 puff INH BID 05/04/17 [History] Patient Handouts: Inguinal Hernia, Adult, [id number], Atrial Fibrillation, [id number] Referrals: Wendy Montenegro NP [Family Provider] - (follow-up as scheduled next week) - Discharge Summary/Plan Comment DC Time >30 min.: No (25) - Patient Data Vitals - Most Recent: Last Vital Signs Temp 36.8 C 05/05/17 07:00 Pulse 69 05/05/17 09:35 Resp 20 05/05/17 07:00 BP 136/71 05/05/17 09:35 Pulse Ox 94 L 05/05/17 07:00 Weight - Most Recent: 77.836 kg I&O - Last 24 hours: Intake & Output 05/04/17 05/05/17 05/05/17 22:59 06:59 14:59 Intake Total 120 150 360 Balance 120 150 360 Lab Results - Last 24 hrs: Laboratory Results - last 24 hr 05/04/17 05/04/17 05/04/17 Range/Units 15:04 15:04 15:04 WBC 9.9 (4.5-11.0) K/uL RBC 3.72 L (4.30-5.90) M/uL Hgb 11.3 L (12.0-15.0) g/dL Hct 34.5 L (40.0-54.0) % MCV 93 (80-98) fL MCH 30 (27-31) pg MCHC 33 (32-36) % Plt Count 142 L (150-400) K/uL Neut % (Auto) 82 H (36-66) % Lymph % (Auto) 9 L (24-44) % [place] % (Auto) 8 H (2-6) % Eos % (Auto) 1 L (2-4) % Baso % (Auto) 0 (0-1) % Sodium 136 L (140-148) mmol/L Potassium 4.3 (3.6-5.2) mmol/L Chloride 102 (100-108) mmol/L Carbon Dioxide 29 (21-32) mmol/L Anion Gap 9.3 (5.0-14.0) mmol/L BUN 22 H (7-18) mg/dL Creatinine 1.3 (0.8-1.3) mg/dL Est Cr Clr Drug Dosing 41.54 mL/min Estimated GFR (MDRD) 52 L (>60) Glucose 143 H (74-106) mg/dL Calcium 8.3 L (8.5-10.1) mg/dL Magnesium 2.0 (1.8-2.4) mg/dL Troponin I 0.050 (0.000-0.056) ng/mL TSH, Ultra Sensitive 1.400 (0.358-3.740) uIU/mL Med Orders - Current: Current Medications Acetaminophen (Tylenol) 650 mg PO Q4H PRN PRN Reason: Pain (Mild 1-3)/fever Hydrocodone Bitart/Acetaminophen ([place] 325-5 Mg) 1 tab PO Q4H PRN PRN Reason: Pain (moderate 4-6) Last Admin: 05/05/17 11:25 Dose: 1 tab Docusate Sodium (Colace) 100 mg PO DAILY PRN PRN Reason: Constipation Last Admin: 05/04/17 21:01 Dose: 100 mg Finasteride (Proscar) 5 mg PO DAILY [facility] Last Admin: 05/05/17 09:33 Dose: 5 mg Lisinopril (Prinivil) 5 mg PO DAILY [facility] Last Admin: 05/05/17 09:35 Dose: 5 mg Lorazepam (Ativan) 0.25 mg PO Q4H PRN PRN Reason: Anxiety Last Admin: 05/04/17 18:01 Dose: 0.25 mg Metoprolol Tartrate (Lopressor) 12.5 mg PO BID [facility] Last Admin: 05/05/17 09:35 Dose: 12.5 mg (Aspirin [Adult Low Dose Aspirin Ec] 81 Mg)*Pom* 81 mg PO DAILY [facility] Last Admin: 05/05/17 09:35 Dose: 81 mg (Omeprazole [ Prilosec] 20 Mg)*Pom * 20 mg PO BIDAC [facility] Last Admin: 05/05/17 07:50 Dose: 20 mg (Paroxetine Hcl [ Paroxetine Hcl] 10 Mg)*Pom* 10 mg PO DAILY [facility] Last Admin: 05/05/17 09:34 Dose: 10 mg (Simvastatin [Zocor] (80 Mg)*Pom*) 40 mg PO BEDTIME [facility] Last Admin: 05/04/17 20:58 Dose: 40 mg Ondansetron HCl (Zofran Odt) 4 mg PO Q6H PRN PRN Reason: Nausea able to take PO Advair Hfa 115/21 ( (Ptom)) 0 each INH BIDRT [facility] Last Admin: 05/05/17 08:40 Dose: 2 each Polyethylene Glycol (Miralax) 17 gm PO DAILY [facility] Last Admin: 05/05/17 09:36 Dose: 17 gm Sodium Chloride (Saline Flush) 10 ml FLUSH ASDIRECTED PRN PRN Reason: Keep Vein Open Terazosin HCl (Hytrin) 5 mg PO BEDTIME [facility] Last Admin: 05/04/17 20:57 Dose: 5 mg Discontinued Medications Hydrocodone Bitart/Acetaminophen ([place] 325-5 Mg) 1 - 2 tab PO Q4H PRN PRN Reason: Pain Last Admin: 05/04/17 11:09 Dose: 1 tab Bupivacaine HCl/Epinephrine Bitart (Marcaine 0.5%/Epinephrine 1:200,000) Confirm Administered Dose 50 ml .ROUTE .STK-MED ONE Stop: 05/04/17 07:02 Last Admin: 05/04/17 07:55 Dose: 7 ml Fentanyl (Sublimaze) Confirm Administered Dose 100 mcg .ROUTE .STK-MED ONE Stop: 05/04/17 07:33 Dextrose/Lactated Ringer's (Dextrose 5%-Lactated Ringers) 1,000 mls @ 100 mls/ hr IV ASDIRECTED [facility] Last Admin: 05/04/17 07:00 Dose: 100 mls/hr Cefazolin Sodium 2 gm/ Sodium (Chloride) 50 mls @ 100 mls/hr IV ONETIME ONE Stop: 05/04/17 07:59 Last Admin: 05/04/17 19:43 Dose: Not Given Sodium Chloride (Normal Saline) 1,000 mls @ 100 mls/hr IV ASDIRECTED [facility] Last Admin: 05/04/17 15:57 Dose: 100 mls/hr Lidocaine HCl (Xylocaine 1%) Confirm Administered Dose 50 ml .ROUTE .STK-MED ONE Stop: 05/04/17 07:02 Last Admin: 05/04/17 07:55 Dose: 7 ml Propofol (Diprivan 20 Ml) Confirm Administered Dose 200 mg .ROUTE .STK-MED ONE Stop: 05/04/17 07:33 Propofol (Diprivan 20 Ml) Confirm Administered Dose 200 mg .ROUTE .STK-MED ONE Stop: 05/04/17 07:59 *Q Meaningful Use (DIS) - VTE *Q VTE Criteria *Q: - Stroke *Q Stroke Criteria *Q: - AMI *Q AMI Criteria *Q:
--- NOTE | 2017-05-07 08:41 | CR ---
Chest 2V HISTORY: shortness of breath COMPARISON: 09/27/2016 FINDINGS: Mild cardiomegaly appears similar to exam of 09/27/2016. Interstitial lung pattern is less prominent . No focal infiltrate is identified. Pulmonary vasculature is borderline prominent. No pleural fluid is seen. Remainder the exam is unchanged IMPRESSION: No acute chest abnormality identified. Cardiomegaly and borderline vascular redistribution. Pulmonar y congestive changes have improved in the interval.
== END 2017-05-05 12:15 | disposition home or self-care (01) ==
LOC: JP.SDS 06:21 → JP.MS 15:47
PROVIDERS: ADMIT Internal Medicine; ATTEND Internal Medicine
PROC: 0YU60JZ Supplement Left Inguinal Region with Synthetic Substitute, Open Approach (ICD-10-PCS; principal; 2017-05-04)
DX: I48.0 Paroxysmal atrial fibrillation (principal); K40.90 Unilateral inguinal hernia, without obstruction or gangrene, not specified as recurrent; R53.1 Weakness; Z79.82 Long term (current) use of aspirin; Z79.899 Other long term (current) drug therapy; E78.00 Pure hypercholesterolemia, unspecified; I42.9 Cardiomyopathy, unspecified; N40.0 Benign prostatic hyperplasia without lower urinary tract symptoms; K21.9 Gastro-esophageal reflux disease without esophagitis; K58.9 Irritable bowel syndrome, unspecified; Z86.010 Personal history of colon polyps; G62.9 Polyneuropathy, unspecified; R06.02 Shortness of breath; K59.09 Other constipation; I13.0 Hypertensive heart and chronic kidney disease with heart failure and stage 1 through stage 4 chronic kidney disease, or unspecified chronic kidney disease; I50.31 Acute diastolic (congestive) heart failure; N18.3 Chronic kidney disease, stage 3 (moderate)
CPT/HCPCS: 36415; 49505; 71020; 80048; 83735; 84443; 84484; 85025; 93005; 97162; 97530; A9270; C1781; J0690; J2704; J3010; J7040; J7042; J7050; 93010; 96374; G0378

== ENCOUNTER 2018-03-12 04:07 | Emergency (ER) | payer MEDICARE, OTHER ==
--- NOTE | 2018-03-12 04:42 | EDM.PDOC ---
<Grady Amezquita - Last Filed: 03/12/18 05:49> ED HPI GENERAL MEDICAL PROBLEM - General Chief Complaint: Respiratory Problem Stated Complaint: SOB Time Seen by Provider: 03/12/18 04:35 Source of Information: Reports: Patient, Old Records, RN History Limitations: Reports: Other (hard of hearing, poor historian) - History of Present Illness INITIAL COMMENTS - FREE TEXT/NARRATIVE: 87 yo male presents with SOB since yesterday morning. Does not have any hx of lung problems. He denies any pain or fever or cough. Is not a smoker. Has not sought medical care until this morning. Fell 3 weeks ago at home and injured the ribs on his L side. Has a hx of afib. Onset Date: 03/11/18 Duration: Hour(s): Location: Reports: Chest Quality: Reports: Other (denies new pain) Severity: Mild Improves with: Reports: Rest Worsens with: Reports: Movement Context: Reports: Other (unknown) Associated Symptoms: Reports: No Other Symptoms Treatments CASE RESOLUTION SPECIALIST: Reports: Other (see below) (none) - Related Data Allergies Allergy/AdvReac Type Severity Reaction Status Date / Time gabapentin AdvReac Stomach Verified 03/12/18 04:15 Upset Home Meds: Home Meds Finasteride [Proscar] 5 mg PO DAILY 01/29/15 [History] Lisinopril [Zestril] 5 mg PO DAILY 01/29/15 [History] Omeprazole [Prilosec] 40 mg PO DAILY 01/29/15 [History] Simvastatin [Zocor] 80 mg PO BEDTIME 01/29/15 [History] PARoxetine HCl [Paroxetine HCl] 10 mg PO DAILY 11/06/15 [History] Aspirin [Adult Low Dose Aspirin EC] 81 mg PO DAILY 08/29/16 [History] Terazosin [Hytrin] 5 mg PO BEDTIME 08/29/16 [History] Polyethylene Glycol 3350 [Miralax] 17 gm PO DAILY 08/31/16 [History] Acetaminophen [Tylenol Arthritis] 2 tab PO Q8HR PRN 05/02/17 [History] Ferrous Sulfate 325 mg PO Q48H 05/02/17 [History] Furosemide [Lasix] 60 mg PO DAILY 05/02/17 [History] Cholecalciferol (Vitamin D3) [Vitamin D3] 2,000 unit PO DAILY 03/12/18 [History] Warfarin [Coumadin] 5 mg PO ASDIRECTED 03/12/18 [History] Warfarin [Coumadin] 7.5 mg PO ASDIRECTED 03/12/18 [History] Past Medical History HEENT History: Reports: Hard of Hearing, Impaired Vision Other HEENT History: wears glasses Cardiovascular History: Reports: Cardiomyopathy, Heart Murmur, High Cholesterol , Hypertension Respiratory History: Reports: SOB Gastrointestinal History: Reports: Chronic Constipation, Colon Polyp, GERD, Irritable Bowel Syndrome Genitourinary History: Reports: BPH, Chronic Renal Insuffiency Other Genitourinary History: stage 3 Musculoskeletal History: Reports: Back Pain, Chronic, Fracture, Other (See Below ) Other Musculoskeletal History: 3 vertabrae's crushed together. 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 rib fx Neurological History: Reports: Neuropathy, Peripheral, Other (See Below) Other Neuro History: neuopathy(HCC) Psychiatric History: Reports: Depression, Other (See Below) Other Psychiatric History: sleep distrbance Endocrine/Metabolic History: Reports: Other (See Below) Other Endocrine/Metabolic History: subclinical [id number] - Infectious Disease History Infectious Disease History: Reports: Chicken Pox, Mumps - Past Surgical History GI Surgical History: Reports: Cholecystectomy, Colonoscopy, Hernia Repair/Other , Polypectomy Neurological Surgical History: Reports: Lumbar Spine Musculoskeletal Surgical History: Reports: Arthroscopic Knee, Carpal Tunnel, Other (See Below) Other Musculoskeletal Surgeries/Procedures:: hip surgery Social & Family History - Family History Cardiac: Reports: [place], Other (See Below) Other Cardiac Family History: father of heart attack Endocrine/Metabolic: Reports: Diabetes, type II Hematologic: Reports: None Oncologic: Reports: Other (See Below) Other Oncologic Family History: sister had cancer unsure of what kind - Tobacco Use Smoking Status *Q: Never Smoker - Caffeine Use Caffeine Use: Reports: Coffee Caffeine Use Comment: one half cup tid - Recreational Drug Use Recreational Drug Use: No ED ROS GENERAL - Review of Systems Review Of Systems: See Below Constitutional: Reports: No Symptoms HEENT: Reports: No Symptoms Respiratory: Reports: Shortness of Breath. Denies: Pleuritic Chest Pain, Cough , Sputum, Hemoptysis Cardiovascular: Reports: No Symptoms GI/Abdominal: Reports: No Symptoms : Reports: No Symptoms Musculoskeletal: Reports: No Symptoms Skin: Reports: No Symptoms Neurological: Reports: No Symptoms Psychiatric: Reports: No Symptoms ED EXAM, GENERAL - Physical Exam Exam: See Below Exam Limited By: Other (hard of hearing, poor historian) General Appearance: Alert, WD/WN, No Apparent Distress Eye Exam: Bilateral Eye: Normal Inspection Ears: Normal External Exam, Normal Canal, Hearing Grossly Normal, Normal TMs Ear Exam: Bilateral Ear: Auricle Normal, Canal Normal, TM normal Nose: Normal Inspection, Normal Mucosa, No Blood Throat/Mouth: Normal Inspection, Normal Lips, Normal Oropharynx, Normal Voice, No Airway Compromise Head: Atraumatic, Normocephalic Neck: Normal Inspection, Supple Respiratory/Chest: No Respiratory Distress, Lungs Clear, Normal Breath Sounds, No Accessory Muscle Use Cardiovascular: Regular Rate, Rhythm, No Edema GI/Abdominal: Normal Bowel Sounds, Soft, Non-Tender, No Distention (Male) Exam: Normal Inspection Back Exam: Normal Inspection. No: CVA Tenderness (R), CVA Tenderness (L) Extremities: Normal Inspection, Normal Range of Motion, Non-Tender, No Pedal Edema Neurological: Alert, Oriented, CN II-XII Intact, Normal Cognition, No Motor/ Sensory Deficits Psychiatric: Normal Affect, Normal Mood Skin Exam: Warm, Dry, Intact, Normal Color, No Rash Lymphatic: No Adenopathy EKG INTERPRETATION EKG Date: 03/12/18 Time: 04:15 Rhythm: A-Fib Rate (Beats/Min): 69 [place]: Normal P-Wave: Absent QRS: Normal ST-T: Normal QT: Prolonged Comparison: No Change Course - Vital Signs Last Recorded V/S: Last Vital Signs Temp 96.8 F 03/12/18 04:12 Pulse 73 03/12/18 06:19 Resp 23 H 03/12/18 06:19 BP 124/65 03/12/18 06:19 Pulse Ox 97 03/12/18 06:19 - Orders/Labs/Meds Orders: Active Orders 24 hr Category Date Time Status Chest 2V [CR] Stat Exams 03/12/18 04:42 Taken Sodium Chloride 0.9% [Saline Flush] Med 03/12/18 05:46 Active 10 ml FLUSH ASDIRECTED PRN Saline Lock Insert [OM.PC] Routine Oth 03/12/18 05:46 Ordered Medication Orders Sodium Chloride (Saline Flush) 10 ml FLUSH ASDIRECTED PRN PRN Reason: Keep Vein Open Last Admin: 03/12/18 06:17 Dose: 10 ml Labs: Laboratory Tests 03/12/18 03/12/18 03/12/18 Range/Units 04:55 04:55 04:55 WBC 8.7 (4.5-11.0) K/uL RBC 3.58 L (4.30-5.90) M/uL Hgb 11.2 L (12.0-15.0) g/dL Hct 33.6 L (40.0-54.0) % MCV 94 (80-98) fL MCH 31 (27-31) pg MCHC 33 (32-36) % Plt Count 190 (150-400) K/uL PT (9.5-12.0) sec INR (0.80-1.20) D-Dimer, Quantitative 482 H (0.0-400.0) ng/mL Sodium 136 L (140-148) mmol/L Potassium 4.0 (3.6-5.2) mmol/L Chloride 102 (100-108) mmol/L Carbon Dioxide 25 (21-32) mmol/L Anion Gap 13.0 (5.0-14.0) mmol/L BUN 31 H (7-18) mg/dL Creatinine 1.3 (0.8-1.3) mg/dL Est Cr Clr Drug Dosing 40.79 mL/min Estimated GFR (MDRD) 52 L (>60) Glucose 96 (74-106) mg/dL Calcium 8.6 (8.5-10.1) mg/dL Troponin I 0.082 H* (0.000-0.056) ng/mL NT-Pro-B Natriuret Pep (5-450) pg/mL 03/12/18 03/12/18 03/12/18 Range/Units 04:55 05:55 07:00 WBC (4.5-11.0) K/uL RBC (4.30-5.90) M/uL Hgb (12.0-15.0) g/dL Hct (40.0-54.0) % MCV (80-98) fL MCH (27-31) pg MCHC (32-36) % Plt Count (150-400) K/uL PT 22.7 H (9.5-12.0) sec INR 2.06 H (0.80-1.20) D-Dimer, Quantitative (0.0-400.0) ng/mL Sodium (140-148) mmol/L Potassium (3.6-5.2) mmol/L Chloride (100-108) mmol/L Carbon Dioxide (21-32) mmol/L Anion Gap (5.0-14.0) mmol/L BUN (7-18) mg/dL Creatinine (0.8-1.3) mg/dL Est Cr Clr Drug Dosing mL/min Estimated GFR (MDRD) (>60) Glucose (74-106) mg/dL Calcium (8.5-10.1) mg/dL Troponin I 0.078 H* (0.000-0.056) ng/mL NT-Pro-B Natriuret Pep 9470 H (5-450) pg/mL Meds: Medications Generic Name Dose Route Start Last Admin Trade Name Freq PRN Reason Stop Dose Admin Sodium Chloride 10 ml 03/12/18 05:46 03/12/18 06:17 Saline Flush FLUSH 10 ml ASDIRECTED PRN Administration Keep Vein Open Discontinued Medications Generic Name Dose Route Start Last Admin Trade Name Freq PRN Reason Stop Dose Admin Furosemide 40 mg 03/12/18 05:47 Lasix IVPUSH 03/12/18 05:48 ONETIME ONE Furosemide 80 mg 03/12/18 05:54 03/12/18 06:06 Lasix IVPUSH 03/12/18 05:55 80 mg ONETIME ONE Administration Spironolactone 25 mg 03/12/18 05:49 03/12/18 06:02 Aldactone PO 03/12/18 05:50 25 mg ONETIME ONE Administration - Radiology Interpretation Free Text/Narrative:: CXR-cardiomegaly, interstitial edema. Departure - Departure Disposition: Home, Self-Care 01 Clinical Impression: Diastolic CHF, acute on chronic - Discharge Information Referrals: PCP,None [Primary Care Provider] - Forms: ED Department Discharge Additional Instructions: Start your Lasix today recommend this afternoon taking another 40 mg plan is to do 40 mg in the morning 40 mg in the afternoon please follow-up with your primary care provider in the next 3-5 days for reevaluation, call return to the emergency department worsening of symptoms <Zhou Whyte - Last Filed: 03/12/18 08:03> Course - Re-Assessments/Exams Free Text/Narrative Re-Assessment/Exam: 03/12/18 08:00 Took over care from Dr. Ceja at 7 AM Departure - Departure Time of Disposition: 08:02 Condition: Good - Assessment/Plan Plan: Assessment Acuity = acute Site and laterality = exacerbation of congestive heart failure complicated patient with history of long-term anticoagulation use with aortic stenosis Etiology = probably related to ongoing disease progression Manifestations = dyspnea now improved Location of injury = Home Lab values = CBC unremarkable, INR 2.06 therapeutic range troponin initially 0.082 then 2 hours later 0.078 BNP elevated at 9470 consistent with fluid overload type pattern creatinine 1.3 consistent chronic renal failure stage GIII a Plan I did review lab work with him he had good improvement with Lasix provided in emergency department or to change his medications Lasix 60 mg once daily to Lasix 40 mg twice a day him follow-up with his primary care in the next 3-5 days for reevaluation prescription written for Lasix 40 mg 1 tab by mouth twice a day 30 day supply This note was dictated using [employer] voice recognition software please call with any questions on syntax or grammar.
[2018-03-12] MEDS ORDERED: Sodium Chloride 0.9% 10 ML Syringe FLUSH PRN (05:46)
[2018-03-12] MEDS ORDERED: Furosemide 40 MG/4 ML VIAL IVPUSH ONE ×2 (05:47→05:54)
[2018-03-12] MEDS ORDERED: Spironolactone 25 MG Tab PO ONE (05:49)
[2018-03-12 06:20] VITALS: BP 124/65
--- NOTE | 2018-03-12 08:56 | CR ---
CHEST: 2 view CLINICAL HISTORY:SOB COMPARISON:Portable chest the 2017 FINDINGS: The heart is enlarged. Pulmonary vascularity is normal. There are atherosclerotic changes in the aorta.. There is chronic elevation the left hemidiaphragm. Lungs are mildly hyperaerated. The there is some mild interstitial prominence which is likely chronic. Patient has compression deformiti es in the thoracic spine with 2 level mid thoracic vertebroplasty. IMPRESSION: Cardiac megaly Chronic elevation left hemidiaphragm Changes of COPD Multiple vertebral compression deformities
== END 2018-03-12 08:29 | disposition home or self-care (01) ==
LOC: JP.ED 04:07
DX: I13.0 Hypertensive heart and chronic kidney disease with heart failure and stage 1 through stage 4 chronic kidney disease, or unspecified chronic kidney disease (principal); I50.9 Heart failure, unspecified; N18.9 Chronic kidney disease, unspecified; E78.00 Pure hypercholesterolemia, unspecified; Z88.8 Allergy status to other drugs, medicaments and biological substances; Z79.899 Other long term (current) drug therapy; Z79.82 Long term (current) use of aspirin
CPT/HCPCS: 36415; 71046; 80048; 83880; 84484; 85027; 85379; 85610; 96374; 99284; 99285; A9270; J1940; J7050

== ENCOUNTER 2018-09-24 06:11 | Day surgery (SDC) | payer MEDICARE, OTHER ==
[2018-09-24] MEDS ORDERED: Dextrose 5%-Lactated Ringers 1,000 ML IV SCH (07:00)
[2018-09-24] MEDS ORDERED: Bupivacaine 0.5% 50 ML MDV ONE (07:17)
[2018-09-24] MEDS ORDERED: Lidocaine 1% with EPINEPHrine 1:100,000 50 ML MDV ONE (07:17)
[2018-09-24] MEDS ORDERED: Propofol 200 MG/20 ML SDV ONE (07:56)
[2018-09-24] MEDS ORDERED: fentaNYL 100 MCG/2 ML SDV ONE (07:56)
[2018-09-24] MEDS ORDERED: Ampicillin/Sulbactam Na 3 GM in Sodium Chloride 0.9% 100 ML IV ONE (08:00)
[2018-09-24 09:41] VITALS: BP 142/81
--- NOTE | 2018-10-01 00:22 | OR ---
DATE OF PROCEDURE: 09/24/2018 PREOPERATIVE DIAGNOSIS: Spreading necrotizing infection involving 1. Dorsum of right hand overlying the knuckles proximal to the right middle finger. 2. Dorsum of the left middle finger extending up to and above the middle interphalangeal joint. POSTOPERATIVE DIAGNOSES: 1. Spreading necrotizing infection involving. a. Dorsum of right hand overlying the knuckles proximal to the right middle finger. b. Dorsum of the left middle finger extending up to and above the middle interphalangeal joint. 2. Focal subfascial abscesses at both sites of necrosis. OPERATIVE PROCEDURES: 1. Debridement of right hand on the dorsal side proximal to the right middle finger knuckle with drainage of associated subfascial abscess (, ). 2. Debridement of dorsum of left middle finger with drainage of associated subfascial abscess (, ). ANESTHESIA: 1. Digital block to base of the left middle finger. 2. Local anesthetic to right hand. 3. IV sedation. INDICATION FOR PROCEDURE: This is an 88-year-old presenting with some recurrent necrotizing infection involving the dorsum of the right hand and dorsum of left middle finger as outlined above. Plan is to proceed with a debridement of these areas. Potential risks including bleeding, infection, possible need to treat infected tendons, and such were all reviewed with the patient and daughter, who was present and they wished to proceed. PROCEDURE IN DETAIL: The patient was taken to the operating room and placed in a supine position. Both hands were then prepped and draped. The splicer operator placed a digital block at the base of the left middle finger and initially the right hand was addressed. The area was anesthetized around the area of concern with some 0.5% Marcaine with lidocaine. This area was initially debrided. Beneath the fascia, there was a small purulent collection consisting of a small subfascial abscess. This was incised and drained and the necrotic tissue including the skin and subcutaneous tissue with some degree of fascia were excised to the point where everything appeared to be viable. Attention was then taken to the left middle finger. This area had actually progressed quite a bit in the 24 hours prior to the previous exam in the clinic and possibly the similar subfascial abscess was encountered. This was incised and drained as well and likewise all the skin, subcutaneous tissue, and some degree of fascia excised. In both cases, the extensor tendons appeared to be not grossly involving the infection and appeared to be remaining viable. Dressings were applied at both locations and the patient was taken to the recovery room in satisfactory condition. Of note, deep tissue cultures were obtained once again and sent for a full microbiologic workup. The area of debridement on the left hand measured 6cm squared ; the area over the right knuckle measured 2cm squared. Peewee Chase MD /[id number] MTDD
== END 2018-09-24 12:04 | disposition home or self-care (01) ==
LOC: JP.SDS 06:11
PROVIDERS: ATTEND Surgery
DX: L02.512 Cutaneous abscess of left hand (principal); L02.511 Cutaneous abscess of right hand; I11.0 Hypertensive heart disease with heart failure; I50.9 Heart failure, unspecified; K21.9 Gastro-esophageal reflux disease without esophagitis
CPT/HCPCS: 10061; 26011; 87015; 87070; 87102; 87116; 87205; 87206; 87220; 88304; 88341; 88342; J0295; J2704; J3010; J3490; J7030; J7042

== ENCOUNTER 2018-11-19 07:50 | Day surgery (SDC) | payer MEDICARE, BC ==
[2018-11-19] MEDS ORDERED: Lidocaine 1% with EPINEPHrine 1:100,000 50 ML MDV ONE (07:58)
[2018-11-19] MEDS ORDERED: Bupivacaine 0.5% 50 ML MDV ONE (07:58)
[2018-11-19] MEDS ORDERED: Dextrose 5%-Lactated Ringers 1,000 ML IV SCH (08:30)
[2018-11-19] MEDS ORDERED: fentaNYL 100 MCG/2 ML SDV ONE (08:55)
[2018-11-19] MEDS ORDERED: Propofol 200 MG/20 ML SDV ONE ×2 (08:55→10:50)
[2018-11-19] MEDS ORDERED: Mupirocin Oint 22 GM Tube TOP ONE (10:45)
[2018-11-19] MEDS ORDERED: Linezolid 600 MG in Premix Bag 1 BAG IV ONE (11:30)
[2018-11-19] MEDS ORDERED: Doxycycline 100 MG Cap PO ONE (12:00)
[2018-11-19 12:54] VITALS: BP 117/67
--- NOTE | 2018-11-25 13:54 | OR ---
DATE OF PROCEDURE: 11/19/2018 PREOPERATIVE DIAGNOSIS: Necrotizing infection involving dorsum of left hand x2. POSTOPERATIVE DIAGNOSIS: Necrotizing infection involving dorsum of left hand x2. PROCEDURE: Debridement of necrotizing inflammation, dorsum of left hand x2: 1. Over 5th metacarpophalangeal joint (4 x 4 cm). 2. Proximal to 2nd metacarpophalangeal joint (1 centimeter squared) (03696). ANESTHESIA: IV sedation plus local. COLOR SEPARATION PHOTOGRAPHER: PAS. Pio INDICATION FOR PROCEDURE: This is an 88-year-old male, presenting with some recurrent necrotizing infection of the dorsum of left hand in the areas outlined above and is to undergo a debridement of those areas. DETAILS OF PROCEDURE: The patient was taken to the operating room and placed in a supine position. IV sedation was administered, after which the left hand and surrounding areas were prepped and draped. The areas of concern were then anesthetized with 1% lidocaine mixed with Marcaine and debridement of the areas as outlined above was undertaken. This included the skin and subcutaneous tissue and a thin layer of the underlying fascia. All of the necrotic material was removed. Care was taken to obtain cultures of the larger of the 2 areas of involvement, and at that point, dressings were applied along with Bactroban cream. The patient was taken to the recovery room in satisfactory condition. There were no evident complications. Peewee Chase MD /[id number]
== END 2018-11-19 12:59 | disposition home or self-care (01) ==
LOC: JP.SDS 07:50
PROVIDERS: ATTEND Surgery
DX: L08.89 Other specified local infections of the skin and subcutaneous tissue (principal); K21.9 Gastro-esophageal reflux disease without esophagitis; I13.0 Hypertensive heart and chronic kidney disease with heart failure and stage 1 through stage 4 chronic kidney disease, or unspecified chronic kidney disease; N18.3 Chronic kidney disease, stage 3 (moderate); I50.9 Heart failure, unspecified; E03.9 Hypothyroidism, unspecified; I51.7 Cardiomegaly
CPT/HCPCS: 11043; 87070; 87075; 87205; 88304; 88305; 88312; A9270; J2020; J2704; J3010; J3490; J7042

== ENCOUNTER 2019-01-04 21:19 | Emergency (ER) | payer MEDICARE, BC ==
--- NOTE | 2019-01-04 22:00 | EDM.PDOC ---
ED HPI GENERAL MEDICAL PROBLEM - General Chief Complaint: Chest Pain Stated Complaint: CHEST PAIN Time Seen by Provider: 01/04/19 21:40 Source of Information: Reports: Patient, Family History Limitations: Reports: No Limitations - History of Present Illness INITIAL COMMENTS - FREE TEXT/NARRATIVE: 88-year-old male with chronic dyspnea, went to a massage therapist 2 days ago and now has anterior chest pain on the left side. It's persistent, dull, does not hurt to move or breathe. He mentioned it to his family and they thought he should get his heart checked out. He has chronic congestive heart failure. O2 saturations are 97%. No cough or fever. Onset: Gradual Duration: Day(s): (Pain for the last 24 hours) Location: Reports: Chest (Left-sided anterior chest pain) Quality: Reports: Ache, Dull Improves with: Reports: None Worsens with: Reports: None Associated Symptoms: Reports: Shortness of Breath (Chronic and unchanged). Denies: Cough, Fever/Chills, Nausea/Vomiting left sided chest pain Pain Score (Numeric/FACES): 8 - Related Data Allergies Allergy/AdvReac Type Severity Reaction Status Date / Time gabapentin AdvReac Stomach Verified 01/04/19 21:21 Upset sulfamethoxazole AdvReac Dizziness Verified 01/04/19 21:21 [From Bactrim] trimethoprim [From Bactrim] AdvReac Dizziness Verified 01/04/19 21:21 Home Meds: Home Meds Finasteride [Proscar] 5 mg PO DAILY 01/29/15 [History] Lisinopril [Zestril] 5 mg PO DAILY 01/29/15 [History] Omeprazole [Prilosec] 20 mg PO BID 01/29/15 [History] Simvastatin [Zocor] 40 mg PO BEDTIME 01/29/15 [History] PARoxetine HCl [Paroxetine HCl] 10 mg PO DAILY 11/06/15 [History] Aspirin [Adult Low Dose Aspirin EC] 81 mg PO DAILY 08/29/16 [History] Terazosin [Hytrin] 5 mg PO BEDTIME 08/29/16 [History] Ferrous Sulfate 325 mg PO Q48H 05/02/17 [History] Furosemide [Lasix] 60 mg PO DAILY 05/02/17 [History] Warfarin [Coumadin] 5 mg PO SUMOWETHFR 03/12/18 [History] Warfarin [Coumadin] 7.5 mg PO TUSA 03/12/18 [History] Acetaminophen [Extra Strength Non-Aspirin] 1,000 mg PO QID PRN 09/14/18 [History ] Cholecalciferol (Vitamin D3) [Vitamin D3] 2,000 unit PO DAILY 09/14/18 [History] Magnesium 500 mg PO BEDTIME 09/14/18 [History] Lactobacillus Rhamnosus GG [Culturelle] 1 cap PO BID #60 cap 09/16/18 [Rx] Mupirocin Oint [Bactroban Oint] 1 applic TP TID 09/23/18 [History] Past Medical History HEENT History: Reports: Hard of Hearing, Impaired Vision Other HEENT History: wears glasses Cardiovascular History: Reports: Afib, Cardiomyopathy, Heart Failure, Heart Murmur, High Cholesterol, Hypertension, Pulmonary Hypertension, SOB on Exertion , Other (See Below) Other Cardiovascular History: cardiomegaly, aortic valve stenosis, lower leg edema Respiratory History: Reports: SOB Gastrointestinal History: Reports: Chronic Constipation, Colon Polyp, GERD, Irritable Bowel Syndrome Genitourinary History: Reports: BPH, Chronic Renal Insuffiency Other Genitourinary History: stage 3 Musculoskeletal History: Reports: Back Pain, Chronic, Fracture, Other (See Below ) Other Musculoskeletal History: 3 vertabrae's crushed together. 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 rib fx Neurological History: Reports: Neuropathy, Peripheral, Other (See Below) Other Neuro History: neuopathy(HCC) Psychiatric History: Reports: Depression, Other (See Below) Other Psychiatric History: sleep distrbance Endocrine/Metabolic History: Reports: Other (See Below) Other Endocrine/Metabolic History: subclinical [id number] Hematologic History: Reports: Iron Deficiency Immunologic History: Reports: None Oncologic (Cancer) History: Reports: None Dermatologic History: Reports: None - Infectious Disease History Infectious Disease History: Reports: Chicken Pox, Measles, Mumps Other Infectious Disease History: INFECTIONS ON HANDS - Past Surgical History GI Surgical History: Reports: Cholecystectomy, Colonoscopy, Hernia Repair/Other , Polypectomy Neurological Surgical History: Reports: Lumbar Spine Musculoskeletal Surgical History: Reports: Arthroscopic Knee, Carpal Tunnel, Other (See Below) Other Musculoskeletal Surgeries/Procedures:: hip surgery Social & Family History - Family History Family Medical History: Noncontributory Cardiac: Reports: MD, Other (See Below) Other Cardiac Family History: father of heart attack Endocrine/Metabolic: Reports: Diabetes, type II Hematologic: Reports: None Oncologic: Reports: Other (See Below) Other Oncologic Family History: sister had cancer unsure of what kind - Tobacco Use Smoking Status *Q: Never Smoker - Caffeine Use Caffeine Use: Reports: Coffee Caffeine Use Comment: one half cup tid - Recreational Drug Use Recreational Drug Use: No ED ROS GENERAL - Review of Systems Review Of Systems: See Below Constitutional: Denies: Fever, Chills, Malaise HEENT: Reports: No Symptoms Respiratory: Reports: Shortness of Breath. Denies: Cough Cardiovascular: Reports: Chest Pain. Denies: Lightheadedness, Palpitations GI/Abdominal: Denies: Abdominal Pain, Nausea, Vomiting : Reports: No Symptoms Skin: Reports: No Symptoms Neurological: Reports: No Symptoms ED EXAM, GENERAL - Physical Exam Exam: See Below Exam Limited By: No Limitations General Appearance: Alert, No Apparent Distress Eye Exam: Bilateral Eye: EOMI Head: Atraumatic Respiratory/Chest: No Respiratory Distress, Other (A few bilateral basilar crackles are heard but overall good air movement) Cardiovascular: Regular Rate, Rhythm, Extra Beats (Occasional extra beats) GI/Abdominal: Soft, Non-Tender Extremities: Pedal Edema (1+ symmetric lower extremity edema) Neurological: Alert, Oriented Psychiatric: Normal Affect, Normal Mood EKG INTERPRETATION Rhythm: NSR EKG Interpretation Comments: EKG sodium normal sinus bradycardia with occasional PVCs. No ST elevation or depression. Course - Vital Signs Last Recorded V/S: Last Vital Signs Temp 97.3 F 01/04/19 21:29 Pulse 67 01/04/19 23:20 Resp 14 01/04/19 23:20 BP 133/79 01/04/19 23:20 Pulse Ox 95 01/04/19 23:20 - Orders/Labs/Meds Orders: Active Orders 24 hr Category Date Time Status EKG Documentation Completion [RC] ASDIRECTED Care 01/04/19 21:55 Active EKG 12 Lead [EK] Routine Ther 01/04/19 21:55 Ordered Labs: Laboratory Tests 01/04/19 01/04/19 Range/Units 22:05 22:05 WBC 6.9 (4.5-11.0) K/uL RBC 3.27 L (4.30-5.90) M/uL Hgb 10.5 L (12.0-15.0) g/dL Hct 32.2 L (40.0-54.0) % MCV 99 H (80-98) fL MCH 32 H (27-31) pg MCHC 33 (32-36) % Plt Count 171 (150-400) K/uL Neut % (Auto) 74 H (36-66) % Lymph % (Auto) 12 L (24-44) % Castro % (Auto) 11 H (2-6) % Eos % (Auto) 3 (2-4) % Baso % (Auto) 0 (0-1) % Sodium 135 L (140-148) mmol/L Potassium 4.3 (3.6-5.2) mmol/L Chloride 99 L (100-108) mmol/L Carbon Dioxide 28 (21-32) mmol/L Anion Gap 12.3 (5.0-14.0) mmol/L BUN 32 H (7-18) mg/dL Creatinine 1.5 H (0.8-1.3) mg/dL Est Cr Clr Drug Dosing 32.44 mL/min Estimated GFR (MDRD) 44 L (>60) Glucose 102 (74-106) mg/dL Calcium 9.2 (8.5-10.1) mg/dL Troponin I 0.168 H* (0.000-0.056) ng/mL - Re-Assessments/Exams Free Text/Narrative Re-Assessment/Exam: 01/04/19 21:59 EKG was reassuring. A CBC, BMP and troponin were obtained as well as a two-view chest x-ray. 01/04/19 22:47 Troponin was elevated at 0.16, but in reviewing past troponins he always runs a high troponin over the past 3 years likely related to his congestive heart failure. His creatinine is also elevated at 1.5. He was discharged with 10 hydrocodone to use one every 3 hours for pain and can recheck in the next 24-48 hours if he is not improving. Departure - Departure Time of Disposition: 23:41 Disposition: Home, Self-Care 01 Condition: Good Clinical Impression: Left-sided chest wall pain - Discharge Information Instructions: Chest Wall Pain, [id number] Referrals: Christian Marshall NP [Primary Care Provider] - Forms: ED Department Discharge Care Plan Goals: Continue your current medications, and take one pain pill every 3 hours if needed. Increase activity as tolerated, and return anytime if worsening despite treatment. Consider rechecking in a few days if not improving. - My Orders Last 24 Hours: My Active Orders 01/04/19 21:55 EKG Documentation Completion [RC] ASDIRECTED EKG 12 Lead [EK] Routine - Assessment/Plan Last 24 Hours: My Active Orders 01/04/19 21:55 EKG Documentation Completion [RC] ASDIRECTED EKG 12 Lead [EK] Routine
--- NOTE | 2019-01-04 22:42 | CRLCR ---
HISTORY: Dyspnea. TECHNIQUE: Two-view chest. COMPARISON: Chest x-ray 03/12/2018. FINDINGS: Left hemidiaphragm is elevated, unchanged. Left basilar atelectasis. No consolidation. No pleural effusion or pneumothorax. Pulmonary vasculature is within normal limits. Cardiomediastinal silhouette is enlarged, unchanged. Compression deformities of several id thoracic vertebral bodies are not significantly changed. Vertebral augmentation in the mid thoracic spine. Probable progression of height loss of a lower thoracic or upper lumbar vertebral body since March 2018. Adjacent lower thoracic vertebral compression deformity is unchanged. Surgical clips in the upper abdomen. IMPRESSION: No acute findings in the chest. Dictated by Isidoro Whitman MD @ Jan 04 2019 10:35PM Signed by Dr. Isidoro Whitman @ Jan 04 2019 10:40PM
[2019-01-04 23:46] VITALS: BP 133/79
== END 2019-01-04 23:35 | disposition home or self-care (01) ==
LOC: JP.ED 21:19
DX: R07.89 Other chest pain (principal); I50.9 Heart failure, unspecified; I13.0 Hypertensive heart and chronic kidney disease with heart failure and stage 1 through stage 4 chronic kidney disease, or unspecified chronic kidney disease; N18.9 Chronic kidney disease, unspecified; Z88.2 Allergy status to sulfonamides; Z88.8 Allergy status to other drugs, medicaments and biological substances; Z79.899 Other long term (current) drug therapy
CPT/HCPCS: 36415; 71046; 80048; 84484; 85025; 93005; 99285-25

== ENCOUNTER 2019-01-28 08:43 | Day surgery (SDC) | payer MEDICARE, BC ==
[2019-01-28] MEDS ORDERED: Dextrose 5%-Lactated Ringers 1,000 ML IV SCH (09:45)
[2019-01-28] MEDS ORDERED: Bupivacaine 0.5% 50 ML MDV ONE (10:07)
[2019-01-28] MEDS ORDERED: Bacitracin Oint 1 GM U/D Packet ONE (10:07)
[2019-01-28] MEDS ORDERED: Lidocaine 1% with EPINEPHrine 1:100,000 50 ML MDV ONE (10:07)
[2019-01-28] MEDS ORDERED: Lidocaine 0.5% 50 ML SDV ONE (10:12)
[2019-01-28] MEDS ORDERED: Midazolam 1 MG/ML 2 ML SDV ONE (10:12)
[2019-01-28] MEDS ORDERED: fentaNYL 100 MCG/2 ML SDV ONE (10:12)
[2019-01-28] MEDS ORDERED: Propofol 200 MG/20 ML SDV ONE (10:12)
[2019-01-28] MEDS ORDERED: Mupirocin Oint 22 GM Tube TOP ONE (11:30)
[2019-01-28 13:52] VITALS: BP 137/72
--- NOTE | 2019-02-03 11:39 | OR ---
DATE OF PROCEDURE: 01/28/2019 PREOPERATIVE DIAGNOSIS: Necrotizing infection, dorsum of right ring finger. POSTOPERATIVE DIAGNOSIS: Necrotizing infection, dorsum of right ring finger extending down to the level of extensor tendon. OPERATIVE PROCEDURE: Debridement of necrotizing infection of right ring finger ([id number]). ANESTHESIA: Intravenous block plus sedation. INDICATION FOR PROCEDURE: The patient once again presents with necrotizing soft-tissue infection in his hand. In this case over the dorsum of the right ring finger centered over the middle phalange. The plan is to proceed with debridement of this. Potential risks including bleeding, infection, possible injury to underlying tendons and nerves were gone over and the patient wishes to proceed. DETAILS OF PROCEDURE: The patient was taken to the operating room, placed in a supine position. IV sedation was administered, after which an intravenous block was placed affecting the right forearm and hand. Those areas were then prepped and draped. Prior to prepping the area, the patient was noted to have little bit of drainage from the surface of the wound and this was cultured. After the area was then prepped and draped, the lower edge of the Dominic limb of the necrotic tissue was incised and this put back some of the tissue and that area below the skin was then excised and sent for cultures. Following this, the necrotic tissue was then debrided. In this case, this was extended down to include the investing fascia. The portion of the extensor tendon was exposed, where there was a thin layer of soft tissue overlying this, so the tendon itself was not but quite close to getting so. All of the necrotic tissue was removed and a dressing was then applied, and the patient was taken to the recovery room in satisfactory condition. Bactroban was placed over the incision site prior to placement of the dressing. Peewee Chase MD /[id number]
== END 2019-01-28 15:01 | disposition home or self-care (01) ==
LOC: JP.SDS 08:43
PROVIDERS: ATTEND Surgery
DX: I96 Gangrene, not elsewhere classified (principal); L02.511 Cutaneous abscess of right hand; M65.141 Other infective (teno)synovitis, right hand; I11.0 Hypertensive heart disease with heart failure; I50.9 Heart failure, unspecified
CPT/HCPCS: 11043; 87070; 87075; 87077; 87186; 87205; 88304; A9270; J2250; J2704; J3010; J7042; J3490

== ENCOUNTER 2019-11-21 17:13 | Emergency (ER) | payer MEDICARE, BC ==
[2019-11-21] MEDS ORDERED: Sodium Chloride 0.9% 10 ML Syringe FLUSH PRN (17:26)
--- NOTE | 2019-11-21 17:33 | EDM.PDOC ---
<Grady Amezquita - Last Filed: 11/21/19 17:36> ED HPI GENERAL MEDICAL PROBLEM - General Chief Complaint: Gastrointestinal Problem Stated Complaint: MEDICAL VIA [facility] Time Seen by Provider: 11/21/19 17:29 Source of Information: Reports: Patient, Old Records, Provider History Limitations: Reports: No Limitations - History of Present Illness INITIAL COMMENTS - FREE TEXT/NARRATIVE: 89 yo male presented to the [facility] today with a complaint of no BM for 10 days with some abdominal tenderness. He has tried enemas and Bisacodyl suppositories with only a small amount of hard stool that was black and no relief achieved. In the clinic he received an abdominal X-ray that suggested a bowel obstruction so he was referred to the ER for evaluation and treatment. He is accompanied today by family. He lives in his own home. He has been eating less than usual, but has not had nausea or vomiting. His only previous surgery was to have his gallbladder removed. Onset: Gradual Onset Date: 11/12/19 Duration: Day(s): (10), Getting Worse Location: Reports: Abdomen Quality: Reports: Dull, Pressure (mild) Severity: Mild Improves with: Reports: None Worsens with: Reports: Other (time) Context: Reports: Other (see HPI) Associated Symptoms: Denies: Fever/Chills, Nausea/Vomiting Treatments ENERGY ADVISOR: Reports: Other (see below) (Dulcolax supp and enemas) - Related Data Allergies Allergy/AdvReac Type Severity Reaction Status Date / Time gabapentin AdvReac Stomach Verified 11/21/19 17:52 Upset sulfamethoxazole AdvReac Dizziness Verified 11/21/19 17:52 [From Bactrim] trimethoprim [From Bactrim] AdvReac Dizziness Verified 11/21/19 17:52 Home Meds: Home Meds Finasteride [Proscar] 5 mg PO DAILY 01/29/15 [History] Lisinopril [Zestril] 5 mg PO DAILY 01/29/15 [History] Omeprazole [Prilosec] 20 mg PO BID 01/29/15 [History] Aspirin [Adult Low Dose Aspirin EC] 81 mg PO DAILY 08/29/16 [History] Terazosin [Hytrin] 5 mg PO BEDTIME 08/29/16 [History] Ferrous Sulfate 325 mg PO Q48H 05/02/17 [History] Furosemide [Lasix] 60 mg PO DAILY 05/02/17 [History] Warfarin [Coumadin] 5 mg PO SUMOWETHFR 03/12/18 [History] Acetaminophen [Extra Strength Non-Aspirin] 1,000 mg PO QID PRN 09/14/18 [History ] Cholecalciferol (Vitamin D3) [Vitamin D3] 2,000 unit PO DAILY 09/14/18 [History] Citalopram [Citalopram HBr] 1 tab PO DAILY 11/21/19 [History] Colchicine 1 tab PO DAILY 11/21/19 [History] Warfarin Sodium 1 tab PO ASDIRECTED 11/21/19 [History] Past Medical History HEENT History: Reports: Hard of Hearing, Impaired Vision Other HEENT History: wears glasses Cardiovascular History: Reports: Afib, Cardiomyopathy, Heart Failure, Heart Murmur, High Cholesterol, Hypertension, Pulmonary Hypertension, SOB on Exertion , Other (See Below) Other Cardiovascular History: cardiomegaly, aortic valve stenosis, lower leg edema Respiratory History: Reports: SOB Gastrointestinal History: Reports: Cholelithiasis, Chronic Constipation, Colon Polyp, GERD, Irritable Bowel Syndrome Genitourinary History: Reports: BPH, Chronic Renal Insuffiency Other Genitourinary History: stage 3 Musculoskeletal History: Reports: Back Pain, Chronic, Fracture, Other (See Below ) Other Musculoskeletal History: 3 vertabrae's crushed together. 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 rib fx Neurological History: Reports: Neuropathy, Peripheral, Other (See Below) Other Neuro History: neuopathy(HCC) Psychiatric History: Reports: Depression, Other (See Below) Other Psychiatric History: sleep distrbance Endocrine/Metabolic History: Reports: None, Other (See Below) Other Endocrine/Metabolic History: subclinical [id number] Hematologic History: Reports: Anticoagulation Therapy, Iron Deficiency Immunologic History: Reports: None Oncologic (Cancer) History: Reports: None Dermatologic History: Reports: Other (See Below) Other Dermatologic History: skin lesions of unknown reason on bilateral hands - Infectious Disease History Infectious Disease History: Reports: Mumps Other Infectious Disease History: INFECTIONS ON HANDS - Past Surgical History HEENT Surgical History: Reports: None Cardiovascular Surgical History: Reports: None Respiratory Surgical History: Reports: None GI Surgical History: Reports: Cholecystectomy, Colonoscopy, Hernia Repair/Other , Polypectomy Male Surgical History: Reports: None Endocrine Surgical History: Reports: None Neurological Surgical History: Reports: Lumbar Spine Musculoskeletal Surgical History: Reports: Arthroscopic Knee, Carpal Tunnel, Other (See Below) Other Musculoskeletal Surgeries/Procedures:: hip surgery Dermatological Surgical History: Reports: Other (See Below) Social & Family History - Family History Family Medical History: Noncontributory Cardiac: Reports: [place], Other (See Below) Other Cardiac Family History: father of heart attack Endocrine/Metabolic: Reports: Diabetes, type II Hematologic: Reports: None Oncologic: Reports: Other (See Below) Other Oncologic Family History: sister had cancer unsure of what kind - Caffeine Use Caffeine Use: Reports: None Caffeine Use Comment: one half cup tid ED ROS GENERAL - Review of Systems Review Of Systems: See Below Constitutional: Reports: No Symptoms HEENT: Reports: No Symptoms Respiratory: Reports: No Symptoms Cardiovascular: Reports: No Symptoms GI/Abdominal: Reports: Black Stool (very small amt), Constipation (small and hard stool only in last 10 days), Distension. Denies: Abdominal Pain, Anorexia , Bloody Stool, Diarrhea, Hematemesis, Hematochezia, Melena, Nausea, Vomiting : Reports: No Symptoms Musculoskeletal: Reports: No Symptoms Skin: Reports: No Symptoms Neurological: Reports: No Symptoms Psychiatric: Reports: No Symptoms ED EXAM, GI/ABD - Physical Exam Exam: See Below Exam Limited By: No Limitations General Appearance: Alert, WD/WN, No Apparent Distress Eyes: Bilateral: Normal Appearance Ears: Normal External Exam, Normal Canal, Hearing Grossly Normal, Normal TMs Throat/Mouth: Normal Inspection, Normal Lips, Normal Oropharynx, Normal Voice, No Airway Compromise Head: Atraumatic, Normocephalic Neck: Normal Inspection Respiratory/Chest: No Respiratory Distress, Lungs Clear, Normal Breath Sounds, No Accessory Muscle Use Cardiovascular: Regular Rate, Rhythm, No Edema GI/Abdominal Exam: Distended (dull with percussion), Tender (mild), Abnormal Bowel Sounds (increased). No: Soft, Non-Tender, No Distention, Guarding, Rigid , Rebound Back Exam: Normal Inspection Extremities: Normal Inspection, Normal Range of Motion, Non-Tender, No Pedal Edema Neurological: Alert, Oriented, CN II-XII Intact, Normal Cognition, No Motor/ Sensory Deficits Psychiatric: Normal Affect, Normal Mood Skin Exam: Warm, Dry, Intact, Normal Color, No Rash Course - Vital Signs Last Recorded V/S: Last Vital Signs Temp 96.9 F 11/21/19 17:42 Pulse 60 11/21/19 18:00 Resp 16 11/21/19 17:42 BP 148/70 H 11/21/19 18:00 Pulse Ox 96 11/21/19 18:00 - Orders/Labs/Meds Orders: Active Orders 24 hr Category Date Time Status Saline Lock Insert [OM.PC] Routine Oth 11/21/19 17:26 Ordered Labs: Laboratory Tests 11/21/19 11/21/19 11/21/19 Range/Units 17:35 17:35 17:35 WBC 6.4 (4.5-11.0) K/uL RBC 3.83 L (4.30-5.90) M/uL Hgb 12.0 (12.0-15.0) g/dL Hct 37.1 L (40.0-54.0) % MCV 97 (80-98) fL MCH 31 (27-31) pg MCHC 32 (32-36) % Plt Count 165 (150-400) K/uL PT 24.1 H (9.5-12.0) sec INR 2.34 H D (0.80-1.20) Sodium 135 L (140-148) mmol/L Potassium 3.8 (3.6-5.2) mmol/L Chloride 96 L (100-108) mmol/L Carbon Dioxide 27 (21-32) mmol/L Anion Gap 15.8 H (5.0-14.0) mmol/L BUN 33 H (7-18) mg/dL Creatinine 1.4 H (0.8-1.3) mg/dL Est Cr Clr Drug Dosing 36.04 mL/min Estimated GFR (MDRD) 48 L (>60) Glucose 91 (74-106) mg/dL Calcium 9.1 (8.5-10.1) mg/dL Meds: Medications Discontinued Medications Generic Name Dose Route Start Last Admin Trade Name Freq PRN Reason Stop Dose Admin Bisacodyl 10 mg 11/21/19 19:02 11/21/19 19:14 Dulcolax RECTAL 11/21/19 19:03 10 mg ONETIME ONE Administration Sodium Chloride 10 ml 11/21/19 17:26 11/21/19 17:50 Saline Flush FLUSH 10 ml ASDIRECTED PRN Administration Keep Vein Open - Radiology Interpretation Free Text/Narrative:: CT abdomen and pelvis- CT Results Date: 11/21/19 Departure - Departure Disposition: DC/Tfer to [facility] 64 Clinical Impression: Ileus, unspecified, Abdominal pain - Discharge Information Instructions: Abdominal Pain, Adult Referrals: PCP,None [Primary Care Provider] - Forms: ED Department Discharge Care Plan Goals: Continue encouraging oral hydration with water, a 10 mg Dulcolax suppository twice daily may be helpful and also continue with MiraLAX as recommended by his primary provider. Consider rechecking in the next 2 to 3 days if not improving , or return anytime if worsening such as nausea or vomiting, increased abdominal pain or distention or other concerns. Sepsis Event Note - Focused Exam Vital Signs: Vital Signs Temp Pulse Resp BP Pulse Ox 11/21/19 18:00 60 148/70 H 96 11/21/19 17:42 96.9 F 69 16 135/72 95 11/21/19 17:33 96.9 F 69 16 135/72 95 Date Exam was Performed: 11/21/19 Time Exam was Performed: 17:36 <Javier Lora - Last Filed: 11/21/19 20:33> Course - Re-Assessments/Exams Free Text/Narrative Re-Assessment/Exam: 11/21/19 19:02 Care turned over from Dr. Amezquita pending labs and CT of the abdomen. CBC is normal, BMP is baseline. Patient remained fairly comfortable. CT the abdomen and pelvis showed signs of mild ileus, no obstruction or significant constipation. Findings: There is unremarkable noncontrast appearance of the liver, spleen, pancreas, and adrenal glands. Cholecystectomy clips are noted. There is normal renal parenchymal attenuation without hydronephrosis. There is no nephrolithiasis. There is no abdominal lymphadenopathy. There is normal caliber of the abdominal aorta. There is mild prostatomegaly. The stomach and duodenum are unremarkable. There are a few slightly prominent air fluid filled bowel loops in the lower abdomen, measuring up to 3 centimeters in diameter. The terminal ileum is also mildly distended. There is no small bowel transition point. There is no colonic wall thickening. There is a mild clinic stool load. No inflammatory changes are demonstrated in the mesentery. There is no pneumoperitoneum. Chronic compression deformities are present at all lumbar levels. Intramedullary fixation jeffrey is noted in the right proximal femur. The included lung bases are clear. Cardiomegaly is noted. Impression: 1. Multiple mild distended distal small bowel loops, also with distention of the terminal ileum. Findings are favored to represent ileus. No evidence of small-bowel obstruction. 2. Additional chronic findings, as above. A rectal exam was then done and his rectum is empty. There is no impaction. 1 10 mg Dulcolax suppository was placed, and the patient was discharged back to the [facility] with recommendations of continuing oral hydration, MiraLAX, and repeat Dulcolax twice daily. Return if worsening such as increased pain or vomiting. Departure - Departure Time of Disposition: 19:30 Sepsis Event Note - Focused Exam Date Exam was Performed: 11/21/19 Time Exam was Performed: 20:33
[2019-11-21 18:01] VITALS: BP 148/70; PULSE 60
--- NOTE | 2019-11-21 18:53 | CRLCT ---
Indication: Abdominal distention, no bowel movements, normal x-ray Technique: Nonenhanced axial CT imaging through the abdomen and pelvis. Sagittal and coronal reconstructions are provided. Comparison: Two-view abdominal radiographs 11/21/2019 Findings: There is unremarkable noncontrast appearance of the liver, spleen, pancreas, and adrenal glands. Cholecystectomy clips are noted. There is normal renal parenchymal attenuation without hydronephrosis. There is no nephrolithiasis. There is no abdominal lymphadenopathy. There is normal caliber of the abdominal aorta. There is mild prostatomegaly. The stomach and duodenum are unremarkable. There are a few slightly prominent air fluid filled bowel loops in the lower abdomen, measuring up to 3 centimeters in diameter. The terminal ileum is also mildly distended. There is no small bowel transition point. There is no colonic wall thickening. There is a mild clinic stool load. No inflammatory changes are demonstrated in the mesentery. There is no pneumoperitoneum. Chronic compression deformities are present at all lumbar levels. Intramedullary fixation jeffrey is noted in the right proximal femur. The included lung bases are clear. Cardiomegaly is noted. Impression: 1. Multiple mild distended distal small bowel loops, also with distention of the terminal ileum. Findings are favored to represent ileus. No evidence of small-bowel obstruction. 2. Additional chronic findings, as above. Please note that all CT scans at this facility use dose modulation, iterative reconstruction, and/or weight-based dosing when appropriate to reduce radiation dose to as low as reasonably achievable. Dictated by Andrey Balderas MD @ Nov 21 2019 6:40PM Signed by Dr. Andrey Balderas @ Nov 21 2019 6:51PM
[2019-11-21] MEDS ORDERED: Bisacodyl 10 MG Supp RECTAL ONE (19:02)
== END 2019-11-21 19:34 ==
LOC: JP.ED 17:13
DX: K56.7 Ileus, unspecified (principal); I13.0 Hypertensive heart and chronic kidney disease with heart failure and stage 1 through stage 4 chronic kidney disease, or unspecified chronic kidney disease; N18.9 Chronic kidney disease, unspecified; I50.9 Heart failure, unspecified; I48.91 Unspecified atrial fibrillation; E78.00 Pure hypercholesterolemia, unspecified; K21.9 Gastro-esophageal reflux disease without esophagitis; Z79.01 Long term (current) use of anticoagulants; Z79.899 Other long term (current) drug therapy; Z79.82 Long term (current) use of aspirin; Z88.8 Allergy status to other drugs, medicaments and biological substances; Z88.1 Allergy status to other antibiotic agents; Z88.2 Allergy status to sulfonamides
CPT/HCPCS: 36415; 74176; 80048; 85027; 85610; 99283; 99285; A9270

== ENCOUNTER 2019-12-16 16:53 | Emergency (ER) | payer MEDICARE, BC ==
--- NOTE | 2019-12-16 19:19 | EDM.PDOC ---
ED HPI GENERAL MEDICAL PROBLEM - General Chief Complaint: Abdominal Pain Stated Complaint: STOMACH ISSUE/SOB Time Seen by Provider: 12/16/19 18:05 Source of Information: Reports: Patient, Family - History of Present Illness INITIAL COMMENTS - FREE TEXT/NARRATIVE: 89 yo with hx of multiple medical problems (CHF, a-fib, aortic stenosis, CKD, prior ileus) presents with concerns of abdominal distension and pain. Some limitation to history due to underlying dementia. He reports symptoms started earlier today, include right sided abdominal pain as well as abdominal distension. He has the sensation that he needs to pass stool but has been unable to do so. No nausea or vomiting. No fever. Also noted to be have increased respiratory rate, he feels mildly SOB, not clear if this has changed. No new LE edema. Minimal cough. Upper Abdomen Pain Score (Numeric/FACES): 4 - Related Data Allergies Allergy/AdvReac Type Severity Reaction Status Date / Time gabapentin AdvReac Stomach Verified 12/16/19 17:18 Upset sulfamethoxazole AdvReac Dizziness Verified 12/16/19 17:18 [From Bactrim] trimethoprim [From Bactrim] AdvReac Dizziness Verified 12/16/19 17:18 Home Meds: Home Meds Finasteride [Proscar] 5 mg PO DAILY 01/29/15 [History] Lisinopril [Zestril] 5 mg PO DAILY 01/29/15 [History] Omeprazole [Prilosec] 20 mg PO BID 01/29/15 [History] Terazosin [Hytrin] 5 mg PO BEDTIME 08/29/16 [History] Ferrous Sulfate 325 mg PO Q48H 05/02/17 [History] Furosemide [Lasix] 60 mg PO DAILY 05/02/17 [History] Warfarin [Coumadin] 5 mg PO ASDIRECTED 03/12/18 [History] Acetaminophen [Extra Strength Non-Aspirin] 1,000 mg PO QID PRN 09/14/18 [History ] Cholecalciferol (Vitamin D3) [Vitamin D3] 2,000 unit PO DAILY 09/14/18 [History] Citalopram [Citalopram HBr] 1 tab PO DAILY 11/21/19 [History] Colchicine 1 tab PO DAILY 11/21/19 [History] Warfarin Sodium 1 tab PO ASDIRECTED 11/21/19 [History] Loperamide [Imodium] 2 mg PO Q4H PRN 12/16/19 [History] Mirtazapine 15 mg PO DAILY 12/16/19 [History] Polyethylene Glycol 3350 [Gavilax] 17 gm PO DAILY 12/16/19 [History] Sennosides [Senna] 8.6 mg PO DAILY 12/16/19 [History] bisacodyL [Dulcolax] 10 mg .XX BID 12/16/19 [History] guaiFENesin [Mucinex] 600 mg PO BID PRN 12/16/19 [History] Past Medical History HEENT History: Reports: Hard of Hearing, Impaired Vision Other HEENT History: wears glasses Cardiovascular History: Reports: Afib, Cardiomyopathy, Heart Failure, Heart Murmur, High Cholesterol, Hypertension, Pulmonary Hypertension, SOB on Exertion , Other (See Below) Other Cardiovascular History: cardiomegaly, aortic valve stenosis, lower leg edema Respiratory History: Reports: SOB Gastrointestinal History: Reports: Cholelithiasis, Chronic Constipation, Colon Polyp, GERD, Irritable Bowel Syndrome Genitourinary History: Reports: BPH, Chronic Renal Insuffiency Other Genitourinary History: stage 3 Musculoskeletal History: Reports: Back Pain, Chronic, Fracture, Other (See Below ) Other Musculoskeletal History: 3 vertabrae's crushed together. 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 rib fx Neurological History: Reports: Neuropathy, Peripheral, Other (See Below) Other Neuro History: neuopathy(HCC) Psychiatric History: Reports: Depression, Other (See Below) Other Psychiatric History: sleep distrbance Endocrine/Metabolic History: Reports: None, Other (See Below) Other Endocrine/Metabolic History: subclinical [id number] Hematologic History: Reports: Anticoagulation Therapy, Iron Deficiency Immunologic History: Reports: None Oncologic (Cancer) History: Reports: None Dermatologic History: Reports: Other (See Below) Other Dermatologic History: skin lesions of unknown reason on bilateral hands - Infectious Disease History Infectious Disease History: Reports: Chicken Pox Other Infectious Disease History: INFECTIONS ON HANDS - Past Surgical History HEENT Surgical History: Reports: None Cardiovascular Surgical History: Reports: None Respiratory Surgical History: Reports: None GI Surgical History: Reports: Cholecystectomy, Colonoscopy, Hernia Repair/Other , Polypectomy Male Surgical History: Reports: None Endocrine Surgical History: Reports: None Neurological Surgical History: Reports: Lumbar Spine Musculoskeletal Surgical History: Reports: Arthroscopic Knee, Carpal Tunnel, Other (See Below) Other Musculoskeletal Surgeries/Procedures:: hip surgery Dermatological Surgical History: Reports: Other (See Below) Social & Family History - Family History Family Medical History: Noncontributory Cardiac: Reports: [place], Other (See Below) Other Cardiac Family History: father of heart attack Endocrine/Metabolic: Reports: Diabetes, type II Hematologic: Reports: None Oncologic: Reports: Other (See Below) Other Oncologic Family History: sister had cancer unsure of what kind - Tobacco Use Smoking Status *Q: Never Smoker Second Hand Smoke Exposure: No - Caffeine Use Caffeine Use: Reports: Soda Caffeine Use Comment: one half cup tid - Alcohol Use Days Per Week of Alcohol Use: 0 - Recreational Drug Use Recreational Drug Use: No ED ROS GENERAL - Review of Systems Review Of Systems: See Below Constitutional: Reports: No Symptoms HEENT: Reports: No Symptoms Respiratory: Reports: Shortness of Breath Cardiovascular: Reports: No Symptoms Endocrine: Reports: No Symptoms GI/Abdominal: Reports: Abdominal Pain, Distension : Reports: No Symptoms Musculoskeletal: Reports: No Symptoms Skin: Reports: No Symptoms Neurological: Reports: No Symptoms Psychiatric: Reports: No Symptoms Hematologic/Lymphatic: Reports: No Symptoms Immunologic: Reports: No Symptoms ED EXAM, GI/ABD - Physical Exam Exam: See Below Exam Limited By: No Limitations General Appearance: Alert, No Apparent Distress Ears: Normal External Exam Nose: Normal Inspection Throat/Mouth: Normal Inspection Head: Atraumatic Neck: Normal Inspection Respiratory/Chest: No Respiratory Distress, Lungs Clear, Other (tachypnea) Cardiovascular: Regular Rate, Rhythm, Systolic Murmur GI/Abdominal Exam: Soft, Other (softly distended, minimal right sided tenderness without guarding ) Back Exam: Normal Inspection Extremities: Normal Inspection, No Pedal Edema Neurological: Alert, Oriented Psychiatric: Normal Affect, Normal Mood Skin Exam: Warm, Dry Course - Vital Signs Last Recorded V/S: Last Vital Signs Temp 35.7 C L 12/16/19 17:15 Pulse 66 12/16/19 19:49 Resp 18 12/16/19 17:15 BP 149/76 H 12/16/19 19:49 Pulse Ox 95 12/16/19 19:49 - Orders/Labs/Meds Orders: Active Orders 24 hr Category Date Time Status CXR [Chest 2V] [CR] Stat Exams 12/16/19 18:19 Taken Labs: Laboratory Tests 12/16/19 12/16/19 12/16/19 Range/Units 18:24 18:24 18:24 WBC 5.8 (4.5-11.0) K/uL RBC 3.45 L (4.30-5.90) M/uL Hgb 10.9 L (12.0-15.0) g/dL Hct 34.1 L (40.0-54.0) % MCV 99 H (80-98) fL MCH 32 H (27-31) pg MCHC 32 (32-36) % Plt Count 149 L (150-400) K/uL PT 32.0 H (9.5-12.0) sec INR 3.16 H (0.80-1.20) Sodium 136 L (140-148) mmol/L Potassium 4.2 (3.6-5.2) mmol/L Chloride 99 L (100-108) mmol/L Carbon Dioxide 29 (21-32) mmol/L Anion Gap 12.2 (5.0-14.0) mmol/L BUN 24 H (7-18) mg/dL Creatinine 1.3 (0.8-1.3) mg/dL Est Cr Clr Drug Dosing 36.72 mL/min Estimated GFR (MDRD) 52 L (>60) Glucose 90 (74-106) mg/dL Calcium 8.7 (8.5-10.1) mg/dL Total Bilirubin 0.6 (0.2-1.0) mg/dL AST 37 (15-37) U/L ALT 65 D (12-78) U/L Alkaline Phosphatase 192 H (46-116) U/L NT-Pro-B Natriuret Pep [id number] H (5-450) pg/mL Total Protein 6.3 L (6.4-8.2) g/dL Albumin 3.4 (3.4-5.0) g/dL Globulin 2.9 (2.3-3.5) g/dL Albumin/Globulin Ratio 1.2 (1.2-2.2) Lipase 97 (73-393) U/L - Re-Assessments/Exams Free Text/Narrative Re-Assessment/Exam: 89 yo presents with abdominal pain, distension. Also noted to have tachypnea and modest SOB on unclear etiology. On exam, noted to be tachypnic, mild abdominal distension with minimal tenderness Noted prior history of ileus Perhaps abdominal symptoms are responsible for worsening breathing. Will check abdominal labs, BNP, CXR, and CT the abdomen. 12/16/19 19:31 Free Text/Narrative Re-Assessment/Exam: CT unremarkable Labs with markedly elevated BNP Will plan to increase lasix to 60 mg bid Will need PCP f/u for recheck, but breathing overall stable Discharged 12/16/19 20:07 Departure - Departure Time of Disposition: 20:08 Disposition: Home, Self-Care 01 Clinical Impression: Abdominal discomfort CHF (congestive heart failure) Qualifiers: Heart failure type: unspecified Heart failure chronicity: unspecified Qualified Code(s): I50.9 - Heart failure, unspecified - Discharge Information Referrals: Christian Marshall [employer] [Primary Care Provider] - Forms: ED Department Discharge Additional Instructions: We did not find any acute problem causing your abdominal pain or evidence of significant constipation Please continue your current bowel meds We are going to increase your lasix to twice daily (once in the morning and once in the afternoon) for 3 days to see if you breathing improves. You need to have a repeat check of labs (renal function) and should discuss a permanent increase in your lasix dose with your PCP if you feel you are having a response. Sepsis Event Note - Evaluation Sepsis Screening Result: No Definite Risk - Focused Exam Vital Signs: Vital Signs Temp Pulse Resp BP Pulse Ox 12/16/19 19:49 66 149/76 H 95 12/16/19 18:05 56 L 131/66 98 12/16/19 17:45 57 L 138/69 97 12/16/19 17:15 35.7 C L 68 18 157/77 H 97 12/16/19 17:09 35.7 C L 68 18 157/77 H 97 Date Exam was Performed: 12/16/19 Time Exam was Performed: 20:07 - My Orders Last 24 Hours: My Active Orders 12/16/19 18:19 CXR [Chest 2V] [CR] Stat - Assessment/Plan Last 24 Hours: My Active Orders 12/16/19 18:19 CXR [Chest 2V] [CR] Stat
--- NOTE | 2019-12-16 19:36 | CRLCT ---
Indication: Abdominal pain and distension Technique: Nonenhanced axial CT imaging through the abdomen and pelvis. Sagittal and coronal reconstructions are provided. Comparison: CT abdomen pelvis without contrast 11/21/2019 Findings: There is unremarkable noncontrast appearance of the liver, spleen, pancreas, and adrenal glands. Cholecystectomy clips are noted. There is no abdominal lymphadenopathy. There is atherosclerotic disease of the abdominal aorta without aneurysm. There is normal renal parenchymal attenuation without hydronephrosis. There is no nephrolithiasis. Prostatomegaly is noted. The stomach and duodenum are unremarkable. There are no abnormally dilated small bowel loops. The appendix is not visualized. There is no colonic wall thickening. No inflammatory changes are demonstrated in the mesentery. Degenerative changes and chronic compression deformities are again noted throughout the visualized spine. Cardiomegaly and left pleural effusion are partially visualized. Impression: No acute process demonstrated in the abdomen and pelvis. No evidence of bowel obstruction. Please note that all CT scans at this facility use dose modulation, iterative reconstruction, and/or weight-based dosing when appropriate to reduce radiation dose to as low as reasonably achievable. Dictated by Andrey Balderas MD @ Dec 16 2019 7:24PM Signed by Dr. Andrey Balderas @ Dec 16 2019 7:34PM
[2019-12-16 19:50] VITALS: BP 149/76; PULSE 66
--- NOTE | 2019-12-17 09:09 | CR ---
CHEST: 2 view CLINICAL HISTORY:SOB COMPARISON:01/04/2019 FINDINGS: Heart is enlarged. Pulmonary vascularity is normal. There are atherosclerotic changes in the aorta.. Patient has moderate thoracic deformity due to severe scoliosis. There is less than optimal inspiration. There is some elevation left hemidiaphragm which is chronic. No infiltrate or effusion is seen Impression: Limited chest. Cardiomegaly No acute cardiopulmonary process Chronic elevation left hemidiaphragm Severe scoliosis
== END 2019-12-16 21:03 | disposition home or self-care (01) ==
LOC: JP.ED 16:53
DX: R14.0 Abdominal distension (gaseous) (principal); I13.0 Hypertensive heart and chronic kidney disease with heart failure and stage 1 through stage 4 chronic kidney disease, or unspecified chronic kidney disease; N18.9 Chronic kidney disease, unspecified; I50.9 Heart failure, unspecified; E78.00 Pure hypercholesterolemia, unspecified; Z79.01 Long term (current) use of anticoagulants; Z79.899 Other long term (current) drug therapy; Z88.2 Allergy status to sulfonamides
CPT/HCPCS: 36415; 71046; 71046-26; 74176; 80053; 83690; 83880; 85027; 85610; 99283; 99284-25

== ENCOUNTER 2020-02-26 09:22 | Emergency (ER) | payer MEDICARE, BC ==
[2020-02-26 10:12] VITALS: PULSE 65
[2020-02-26 10:27] VITALS: BP 98/62
--- NOTE | 2020-02-26 10:29 | EDM.PDOC ---
ED HPI GENERAL MEDICAL PROBLEM - General Chief Complaint: General Stated Complaint: FAINTING PASSED OUT Time Seen by Provider: 02/26/20 09:40 Source of Information: Reports: Patient, RN History Limitations: Reports: No Limitations - History of Present Illness INITIAL COMMENTS - FREE TEXT/NARRATIVE: 89-year-old male brought in by ambulance after having a syncopal episode on the toilet this morning at his assisted living. He fell 2 days ago and has a fractured pelvis and 2 ribs. He falls frequently. He has had decreased urine output and decreased hydration. Onset: Unknown/Unsure Associated Symptoms: Reports: Chest Pain (Left lateral discomfort from recent fall) Left Chest Pain Score (Numeric/FACES): 5 - Related Data Allergies Allergy/AdvReac Type Severity Reaction Status Date / Time gabapentin AdvReac Stomach Verified 02/26/20 09:58 Upset sulfamethoxazole AdvReac Dizziness Verified 02/26/20 09:58 [From Bactrim] trimethoprim [From Bactrim] AdvReac Dizziness Verified 02/26/20 09:58 Home Meds: Home Meds Finasteride [Proscar] 5 mg PO DAILY 01/29/15 [History] Lisinopril [Zestril] 5 mg PO DAILY 01/29/15 [History] Omeprazole [Prilosec] 20 mg PO BID 01/29/15 [History] Terazosin [Hytrin] 5 mg PO BEDTIME 08/29/16 [History] Ferrous Sulfate 325 mg PO Q24H 05/02/17 [History] Furosemide [Lasix] 60 mg PO BID 05/02/17 [History] Warfarin [Coumadin] 2.5 mg PO ASDIRECTED 03/12/18 [History] Acetaminophen [Extra Strength Non-Aspirin] 1,000 mg PO QID PRN 09/14/18 [History ] Cholecalciferol (Vitamin D3) [Vitamin D3] 2,000 unit PO DAILY 09/14/18 [History] Citalopram [Citalopram HBr] 1 tab PO DAILY 11/21/19 [History] Colchicine 1 tab PO DAILY 11/21/19 [History] Loperamide [Imodium] 2 mg PO Q4H PRN 12/16/19 [History] Mirtazapine 15 mg PO BEDTIME 12/16/19 [History] Sennosides [Senna] 8.6 mg PO DAILY 12/16/19 [History] guaiFENesin [Mucinex] 600 mg PO BID PRN 12/16/19 [History] polyethylene glycoL 3350 [Gavilax] 17 gm PO DAILY 12/16/19 [History] Melatonin 5 mg PO BEDTIME 02/26/20 [History] Past Medical History HEENT History: Reports: Hard of Hearing, Impaired Vision Other HEENT History: wears glasses Cardiovascular History: Reports: Afib, Cardiomyopathy, Heart Failure, Heart Murmur, High Cholesterol, Hypertension, Pulmonary Hypertension, SOB on Exertion , Other (See Below) Other Cardiovascular History: cardiomegaly, aortic valve stenosis, lower leg edema Respiratory History: Reports: SOB Gastrointestinal History: Reports: Cholelithiasis, Chronic Constipation, Colon Polyp, GERD, Irritable Bowel Syndrome Genitourinary History: Reports: BPH, Chronic Renal Insuffiency Other Genitourinary History: stage 3 Musculoskeletal History: Reports: Back Pain, Chronic, Fracture, Other (See Below ) Other Musculoskeletal History: 3 vertabrae's crushed together. 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 rib fx Neurological History: Reports: Neuropathy, Peripheral, Other (See Below) Other Neuro History: neuopathy(HCC) Psychiatric History: Reports: Depression, Other (See Below) Other Psychiatric History: sleep distrbance Endocrine/Metabolic History: Reports: None, Other (See Below) Other Endocrine/Metabolic History: subclinical [id number] Hematologic History: Reports: Anticoagulation Therapy, Iron Deficiency Immunologic History: Reports: None Oncologic (Cancer) History: Reports: None Dermatologic History: Reports: Other (See Below) Other Dermatologic History: skin lesions of unknown reason on bilateral hands - Infectious Disease History Infectious Disease History: Reports: Chicken Pox Other Infectious Disease History: INFECTIONS ON HANDS - Past Surgical History HEENT Surgical History: Reports: None Cardiovascular Surgical History: Reports: None Respiratory Surgical History: Reports: None GI Surgical History: Reports: Cholecystectomy, Colonoscopy, Hernia Repair/Other , Polypectomy Male Surgical History: Reports: None Endocrine Surgical History: Reports: None Neurological Surgical History: Reports: Lumbar Spine Musculoskeletal Surgical History: Reports: Arthroscopic Knee, Carpal Tunnel, Other (See Below) Other Musculoskeletal Surgeries/Procedures:: hip surgery Oncologic Surgical History: Reports: None Dermatological Surgical History: Reports: Other (See Below) Social & Family History - Family History Family Medical History: Noncontributory Cardiac: Reports: [place], Other (See Below) Other Cardiac Family History: father of heart attack Endocrine/Metabolic: Reports: Diabetes, type II Hematologic: Reports: None Oncologic: Reports: Other (See Below) Other Oncologic Family History: sister had cancer unsure of what kind - Tobacco Use Smoking Status *Q: Never Smoker - Caffeine Use Caffeine Use: Reports: None Caffeine Use Comment: one half cup tid - Alcohol Use Days Per Week of Alcohol Use: 7 Number of Drinks Per Day: 1 Total Drinks Per Week: 7 - Recreational Drug Use Recreational Drug Use: No ED ROS GENERAL - Review of Systems Review Of Systems: See Below Constitutional: Reports: Malaise, Decreased Appetite. Denies: Fever, Chills Respiratory: Reports: Shortness of Breath (Intermittent) GI/Abdominal: Denies: Abdominal Pain, Nausea, Vomiting Skin: Reports: Bruising ED EXAM, GENERAL - Physical Exam Exam: See Below Exam Limited By: No Limitations General Appearance: Alert, No Apparent Distress, Other (Appears tired, weak) Eye Exam: Bilateral Eye: EOMI Head: Atraumatic Neck: Supple, Non-Tender Respiratory/Chest: Other (Bibasilar chronic sounding crackles, decreased breath sounds on the left) Cardiovascular: Irregularly Irregular GI/Abdominal: Soft, Non-Tender Extremities: No: Pedal Edema Neurological: Alert, Oriented Psychiatric: Flat Affect Skin Exam: Other (Widespread numerous bruises in different stages of healing, skin tears that are covered with bandages and Tegaderm) Course - Vital Signs Last Recorded V/S: Last Vital Signs Temp 96.1 F L 02/26/20 10:11 Pulse 65 02/26/20 10:11 Resp 16 02/26/20 10:25 BP 98/62 02/26/20 10:25 Pulse Ox 93 L 02/26/20 10:25 - Orders/Labs/Meds Labs: Laboratory Tests 02/26/20 02/26/20 Range/Units 09:58 09:58 WBC 11.2 H (4.5-11.0) K/uL RBC 3.39 L (4.30-5.90) M/uL Hgb 10.6 L (12.0-15.0) g/dL Hct 32.9 L (40.0-54.0) % MCV 97 (80-98) fL MCH 31 (27-31) pg MCHC 32 (32-36) % Plt Count 157 (150-400) K/uL Neut % (Auto) 88 H (36-66) % Lymph % (Auto) 5 L (24-44) % [place] % (Auto) 7 H (2-6) % Eos % (Auto) 0 L (2-4) % Baso % (Auto) 0 (0-1) % Sodium 123 L (140-148) mmol/L Potassium 5.0 (3.6-5.2) mmol/L Chloride 88 L (100-108) mmol/L Carbon Dioxide 20 L (21-32) mmol/L Anion Gap 20.0 H (5.0-14.0) mmol/L BUN 67 H D (7-18) mg/dL Creatinine 3.1 H D (0.8-1.3) mg/dL Est Cr Clr Drug Dosing 15.32 mL/min Estimated GFR (MDRD) 19 L (>60) Glucose 121 H (74-106) mg/dL Calcium 8.3 L (8.5-10.1) mg/dL Meds: Medications Discontinued Medications Generic Name Dose Route Start Last Admin Trade Name Freq PRN Reason Stop Dose Admin Sodium Chloride 500 mls @ 1,000 mls/hr 02/26/20 10:45 02/26/20 11:08 Normal Saline IV 1,000 mls/hr ASDIRECTED [facility] Administration - Re-Assessments/Exams Free Text/Narrative Re-Assessment/Exam: 02/26/20 11:31 1 view chest x-ray shows significant cardiomegaly but no infiltrate or congestive heart failure. Creatinine is elevated at 3.1 and GFR is down to 19. He will be bolused with 500 cc of fluid, I discussed his condition with his nursing care and his daughter and all are in agreement that a hospice evaluation would be an appropriate course of treatment. An evaluation will be set up. 02/26/20 11:32 Patient was transferred back to [facility] via [facility]. Departure - Departure Time of Disposition: 12:53 Disposition: DC/Tfer to [facility] 64 Clinical Impression: Vasovagal syncope, Dehydration Renal failure (ARF), acute on chronic Qualifiers: Acute renal failure type: unspecified Chronic kidney disease stage: stage 3 ( moderate) Qualified Code(s): N17.9 - Acute kidney failure, unspecified - Discharge Information Instructions: Syncope, [id number] Referrals: Christian Marshall NP [Primary Care Provider] - Forms: ED Department Discharge Care Plan Goals: Patient will be transferred back to long-term care assisted living, encourage fluids and no medication changes at this time. A hospice consultation is recommended. Sepsis Event Note - Evaluation Sepsis Screening Result: No Definite Risk - Focused Exam Vital Signs: Vital Signs Temp Pulse Resp BP Pulse Ox 02/26/20 10:25 16 98/62 93 L 02/26/20 10:11 96.1 F L 65 24 H 93/54 L 95 02/26/20 09:38 66 21 H 110/63 90 L Date Exam was Performed: 02/26/20 Time Exam was Performed: 13:52
[2020-02-26] MEDS ORDERED: Sodium Chloride 0.9% 500 ML IV SCH (10:45)
--- NOTE | 2020-02-26 11:04 | CR ---
CHEST: Portable 02/26/2020 at 10:08 AM CLINICAL HISTORY:Syncope COMPARISON:November 2019 FINDINGS: There is less than optimal inspiration. Heart is moderately enlarged. Pulmonary vascularity appears normal. There is chronic elevation of the left hemidiaphragm with some left basal atelectasis. There are atherosclerotic changes in the aorta. Impression: Less than optimal inspiration Moderate cardiomegaly No infiltrates or effusions.
== END 2020-02-26 12:53 ==
LOC: JP.ED 09:22
DX: N17.9 Acute kidney failure, unspecified (principal); E86.0 Dehydration; I48.91 Unspecified atrial fibrillation; I13.0 Hypertensive heart and chronic kidney disease with heart failure and stage 1 through stage 4 chronic kidney disease, or unspecified chronic kidney disease; I50.9 Heart failure, unspecified; N18.3 Chronic kidney disease, stage 3 (moderate); G62.9 Polyneuropathy, unspecified; F32.9 Major depressive disorder, single episode, unspecified; K21.9 Gastro-esophageal reflux disease without esophagitis; E78.00 Pure hypercholesterolemia, unspecified; Z79.01 Long term (current) use of anticoagulants; Z79.899 Other long term (current) drug therapy; Z88.2 Allergy status to sulfonamides; Z88.8 Allergy status to other drugs, medicaments and biological substances; Z88.1 Allergy status to other antibiotic agents
CPT/HCPCS: 36415; 71045; 80048; 85025; 96360; 96361; 99285; J7030